=== PATIENT | male | born 1955 | race Caucasian/White ===

== ENCOUNTER 2018-03-01 06:38 | Day surgery (SDC) | payer MEDICARE, OTHER, SELFPAY ==
[2018-02-27 12:30] VITALS: BMI 27.8
[2018-03-01] VITALS (9 sets, daily range): BP systolic 120–142; BP diastolic 65–78; PULSE 64–79; RESP 11–17; TEMP 36.3–36.4; O2SAT 95–97; BMI 27.8
[2018-03-01] MEDS: LACTATED RINGERS 1,000 ML 42 ML IV ×2 (08:02→09:04)
--- NOTE | 2018-03-01 08:13 | PM.HP.1 ---
History of Present Illness Date Patient Seen: 03/01/18 Time Patient Seen: 08:13 Chief complaint: [id number] Narrative: The patient is a gentleman here for repair right inguinal hernia that is symptomatic. He is normally anticoagulated but has been bridged with Lovenox because he has a mechanical heart valve Patient History Medical History Enlarged prostate (Acute) Heart murmur (Acute ~2012) JOSELYN on CPAP (Acute) Pancreatitis due to biliary obstruction (Acute ~2012) Paroxysmal atrial fibrillation (Acute) Pre-diabetes (Acute) Urinary incontinence (Acute) Chronic anticoagulation (Chronic) Surgical History History of AAA (abdominal aortic aneurysm) repair (Acute) History of lumbar surgery (Acute ~1989) H/O prostate biopsy (Resolved ~12/2016) History of aortic valve replacement with metallic valve (Resolved 11/19/12) Hx laparoscopic cholecystectomy (Resolved ~06/2013) Family & Social History Family History: Reviewed 03/01/18 by Howie Jimenez MD Social History: household members spouse Tobacco & Substance use: Tobacco type cigarettes Smoking Status Former smoker alcohol intake current Substance Use Type does not use Meds Home Medications Medication Instructions Recorded Confirmed Type amlodipine 5 mg tablet 5 mg PO DAILY 12/13/17 03/01/18 History aspirin 81 mg tablet,delayed 81 mg PO DAILY 12/13/17 03/01/18 History release cholecalciferol (vitamin D3) 1,000 1,000 unit PO DAILY 12/13/17 02/27/18 History unit capsule docusate sodium 100 mg capsule 100 mg PO BID 12/13/17 03/01/18 History enoxaparin 120 mg/0.8 mL 120 mg SUBCUT Q12H #8 ml 12/13/17 Rx subcutaneous syringe iron 150 mg-vit C 60 mg-folate 1 0.5 tab PO DAILY 12/13/17 02/27/18 History [id number] tablet lisinopril 20 mg tablet 20 mg PO DAILY 12/13/17 03/01/18 History multivitamin tablet 1 tab PO DAILY 12/13/17 02/27/18 History tamsulosin 0.4 mg capsule 0.4 mg PO DAILY 09/19/18 09/19/18 History warfarin 5 mg tablet 7.5 mg PO QMWFSU 12/13/17 03/01/18 History warfarin 10 mg PO QTUTHSA 02/27/18 03/01/18 History Allergies Allergy/AdvReac Type Severity Reaction Status Date / Time No Known Drug Allergies Allergy Verified 02/27/18 12:34 Review of Systems Review of Systems No recent cardiac issues. No breathing problems. No black or bloody bowel movements. No seizures or blackouts. He does suffer from hypertension and BPH. Exam Vital Signs (past 8 hours): - 03/01/18 07:22 Temperature 97.4 F L Pulse Rate 64 Respiratory Rate 15 Blood Pressure 139/78 Pulse Oximetry 95 Oxygen Delivery Method Room Air Narrative Exam Narrative: Obese pleasant man in no apparent distress. His lungs are clear to auscultation no rales or rhonchi. Heart regular rate and rhythm he has a metallic click heard well throughout the precordium. His abdomen is protuberant soft nontender without masses. He has reducible right inguinal hernia. Assessment & Plan Plan: Assessment/Plan Narrative: Patient with a right inguinal hernia for repair. I talked to the patient about his risks which include cardiac, bleeding infection recurrence injury to nerves vas deferens blood supply to the testicle.
[2018-03-01] MEDS: CEFAZOLIN 2 GM/100 ML FROZ.PIGGY IV (08:16)
--- NOTE | 2018-03-01 08:16 | PM.PREOP ---
Pre-operative Note Interval Note Pre-op Check: Yes History & Physical exam performed today by Physician Changes: No
--- NOTE | 2018-03-01 08:38 | SUR.OPER ---
Supine on padded OR bed, head on pillow, arms secured on padded arm boards at <90 degrees abduction, legs uncrossed, safety belt at thigh, tape over blanket over lower legs.
[2018-03-01] MEDS: BUPIVACAINE 0.5% (PF) VIAL 30 ML INJ (08:49)
--- NOTE | 2018-03-01 10:00 | PM.OP.1 ---
Operative Date/Time/Diagnoses Date of procedure: 03/01/18 Time of procedure: 10:01 Post-op diagnosis: same (Indirect) Procedure & Clinicians Procedure: Repair with plug and patch technique Same procedure as scheduled: Yes Indications: Symptomatic hernia Surgeon: Howie Jimenez Click Yes if Unassisted: Yes Anesthesia Type: General Operative Notes Findings: Large lipoma of the cord adjacent to an indirect hernia sac Closure Type: primary Specimen(s): none sent Implants & Drains: Mesh Estimated Blood Loss (mL): 5 Procedure in detail: The patient was placed supine on the operating room table and underwent general LMA anesthesia. He was prepped and draped in the usual fashion. A transverse incision was made overlying the internal ring and carried down to the level of the external oblique. The external oblique was opened parallel with its fibers through the external ring. The cord structures were elevated. The cremaster was opened proximally and search made for an indirect sac. A large lipoma of the cord was encountered and from surrounding structures. It was clamped at the level of the deep epigastric vessels were was suture ligated with 2 0 silk. The distal portion was removed. An indirect sac was identified adjacent to this lipoma. It was from surrounding structures and opened. It had no contents. It was suture ligated with a 2 0 silk at the level the deep epigastric vessels. The distal portion was removed. A medium plug was placed in the defect created by the lipoma and the hernia sac. This was tacked into place with interrupted 0 Tycron sutures.. The floor was examined and was found to be weakened but adequate. A patch was placed across the floor and tacked at the pubic tubercle, the posterior lamella of the anterior rectus sheath, the ilioinguinal ligament, and superior lateral to the cord. The opening was modified as necessary to prevent tight constriction of the cord. Sutures of 0 Tycron were used to secure the mesh. The external oblique was closed with a running 3 0 Vicryl. The subcu was closed with interrupted 3 0 Vicryl. The skin was closed with a running 4 0 Vicryl subcuticular stitch and Steri-Strips. Dressing was applied, the patient was awakened, and the patient was taken to the recovery area in good condition. Complications: none Condition: stable Disposition: PACU Plan for aftercare: Will restart Coumadin tonight and Lovenox tomorrow morning
[2018-03-01] MEDS: OXYCODONE/ACETAMINOPHEN 5/325 TABLET 1 TAB PO (10:15)
== END 2018-03-01 11:00 | disposition home or self-care (01) ==
PROVIDERS: Family Provider Family Medicine; PCP Family Medicine; Visit Provider Specialist
PROC: (CPT 49505; principal; 2018-03-01 07:45)
DX: K40.90 Unilateral inguinal hernia, without obstruction or gangrene, not specified as recurrent (principal); D17.6 Benign lipomatous neoplasm of spermatic cord; G47.33 Obstructive sleep apnea (adult) (pediatric); Z79.01 Long term (current) use of anticoagulants
CPT/HCPCS: 49505; C1781; J0690; J1100; J1885; J2250; J2405; J2704; J3010

== ENCOUNTER 2021-07-30 08:22 | Inpatient (IN) | payer MEDICARE, OTHER, SELFPAY ==
[2021-07-30] VITALS (36 sets, daily range): BP systolic 84–147; BP diastolic 43–69; PULSE 62–113; RESP 16–42; TEMP 36.6–38.7; O2SAT 87–98; BMI 26.6; BMI 27.3
--- NOTE | 2021-07-30 08:54 | DI.RAD.S_ITS ---
PROCEDURE: XR CHEST 1V INDICATIONS: fever, chills TECHNIQUE: One view of the chest was acquired. COMPARISON: None. FINDINGS: Surgical changes and devices: Median sternotomy wires and prosthetic heart valve are seen. Lungs and pleura: There is mild pulmonary vascular congestion. No definite focal infiltrate. No pleural effusions or pneumothorax. Mediastinum: Tortuous thoracic aorta with aortic arch calcifications are noted. Heart size is enlarged. Bones and chest wall: No suspicious bony lesions. Overlying soft tissues appear unremarkable. IMPRESSION: Cardiomegaly and mild congestion. No focal infiltrate, pleural effusion or pneumothorax. Dictated by: Madan Escamilla M.D. on 07/30/2021 at 10:18 Approved by: Madan Escamilla M.D. on 07/30/2021 at 10:19
--- NOTE | 2021-07-30 08:57 | ED_ITS ---
HPI - Fever General Chief Complaint: Weakness Stated Complaint: low bp; shakes; slight fever Time Seen by Provider: 07/30/21 08:32 History of Present Illness HPI Narrative: 66-year-old male former smoker with recent evaluations for enlarged prostate presents with his in the chief complaint of fever as high as 105, shaking chills, generalized weakness and poor appetite for the better part of 1 week. He had been seen and evaluated by Urology in [facility] yesterday and had urine demonstrating blood but no sign of infection. He was supposed to have a cystoscopy but he was too ill and they sent him home. He denies runny nose, sore throat or cough. He has no chest pain or shortness of breath. He has been nauseated but denies any vomiting. He denies bad food, recent travel or antibiotic use. Related Data Home Medications Medication Instructions Recorded Confirmed amlodipine 5 mg tablet 5 mg PO DAILY 12/13/17 07/30/21 aspirin 81 mg tablet,delayed 81 mg PO DAILY 12/13/17 07/30/21 release cholecalciferol (vitamin D3) 25 1,000 unit PO DAILY 12/13/17 07/30/21 mcg (1,000 unit) capsule docusate sodium 100 mg capsule 100 mg PO BID 12/13/17 07/30/21 lisinopril 20 mg tablet 20 mg PO DAILY 12/13/17 07/30/21 multivitamin 1 tab PO DAILY 12/13/17 07/30/21 tamsulosin 0.4 mg capsule 0.4 mg PO DAILY 12/13/17 07/30/21 warfarin 5 mg tablet 10 mg PO DAILY 02/27/18 07/30/21 ferrous sulfate 27 mg iron tablet 13.5 mg PO DAILY 07/30/21 07/30/21 Allergies Allergy/AdvReac Type Severity Reaction Status Date / Time No Known Drug Allergies Allergy Verified 02/27/18 12:34 Review of Systems Review of Systems Narrative: GENERAL: See HPI HEENT: Denies sinus pain, ear pain, sore throat, difficulty swallowing, dizziness. RESPIRATORY: Denies dyspnea, cough, wheezing, hemoptysis, sputum. CARDIOVASCULAR: Denies chest pain, palpitations, orthopnea, edema, GASTROINTESTINAL: Denies nausea, vomiting, abdominal pain, diarrhea, constipation, melena. : Denies dysuria, frequency, incontinence, hematuria, urinary retention. MUSCULOSKELETAL: denies weakness, joint pain, or bony pain SKIN: Denies rash, skin lesions, or other NEUROLOGIC: Denies weakness, headache, numbness, change in speech, confusion, seizures, incoordination. PSYCHIATRIC: No concerning psychosocial issues. 12 point review of systems is negative except for those stated above Patient History Medical History (Updated 07/30/21 @ 11:29 by Benedict Hernandez DO) Chronic anticoagulation Enlarged prostate Heart murmur (~2012) JOSELYN on CPAP Pancreatitis due to biliary obstruction (~2012) Paroxysmal atrial fibrillation Pre-diabetes Urinary incontinence Surgical History H/O prostate biopsy (~12/2016) History of AAA (abdominal aortic aneurysm) repair History of aortic valve replacement with metallic valve (11/19/12) History of lumbar surgery (~1989) Hx laparoscopic cholecystectomy (~06/2013) Family History Mother Hypertension Sister Gallstones Diabetes mellitus Social History marital status: household members: spouse occupational status: previously employed Smoking Status: Former smoker alcohol intake: current substance use type: does not use Smoking Status: Former smoker Substance Use Type: does not use Exam Narrative Exam Narrative: GENERAL: [66] year old patient appears stated age. Well-developed patient, in mild distress. HEAD: Atraumatic. Normocephalic. EYES: Pupils equal round and reactive. Extraocular motions intact. No scleral i cterus. No injection or drainage. ENT: Dry mucous membranes Nose without bleeding, purulent drainage. Throat without erythema, tonsillar hypertrophy or exudate. Airway patent. NECK: Trachea midline. Non tender CARDIOVASCULAR: Regular rate and rhythm without murmurs, gallops, or rubs. RESPIRATORY: Clear to auscultation. Breath sounds equal bilaterally. No wheezes, rales, or rhonchi. GASTROINTESTINAL: Abdomen soft, non-tender, nondistended. EXTREMITIES: No edema or joint tenderness. BACK: Nontender without deformity or crepitance. No flank tenderness. NEURO: AOx3. SKIN: Poor skin turgor No rash or erythema of visible areas Initial Vital Signs Initial Vital Signs: Vital Signs Temperature 97.9 F 07/30/21 08:25 Pulse Rate 97 H 07/30/21 08:25 Respiratory Rate 18 07/30/21 08:25 Blood Pressure 111/52 L 07/30/21 08:25 Pulse Oximetry 93 07/30/21 08:25 Course Course Course Narrative: Fractional Excretion of Sodium (FENa) from [employer] on 07/30/2021 All calculations should be rechecked by clinician prior to use RESULT SUMMARY: 0.1 % FENa Pre-Renal e.g. Hypovolemia, heart failure, renal artery stenosis, sepsis (anything causing decreased effective renal perfusion). Remember, contrast-induced nephropathy will often look pre-renal. INPUTS: Serum sodium ?> 132 mEq/L Serum creatinine ?> 2.46 mg/dL Urine sodium ?> 23 mEq/L Urine creatinine ?> 358 mg/dL Orders Ordered: ED Orders 07/30/21 08:45 Complete Blood Count AUTO DIFF Stat Comprehensive Metabolic Panel Stat Lactate (Lactic Acid) Stat Pathologist Review (for CBC) Stat Procalcitonin Stat Troponin & CK Cardiac Panel Stat 07/30/21 08:50 Blood Culture Stat 07/30/21 08:54 XR chest 1V Stat 07/30/21 09:05 Covid-19 + FLU A/B by PCR Stat 07/30/21 09:14 US renal complete Stat 07/30/21 09:44 Creatinine Urine Random Stat Ictotest Urine Stat Sodium Urine Random Stat Urinalysis and Microscopic Stat Urine Culture Stat Levofloxacin (Levaquin) 750 mg in 150 mls @ 100 mls/hr IV NOW ONE Stop: 07/30/21 13:28 Last Admin: 07/30/21 12:02 Dose: 100 mls/hr Documented by: CSRICHARDLE Discontinued Medications Sodium Chloride (Normal Saline 0.9%) 1,000 mls @ 1,000 mls/hr IV BOLUS ONE Stop: 07/30/21 09:54 Last Admin: 07/30/21 09:22 Dose: Not Given Documented by: HALEIGH Sodium Chloride (Normal Saline 0.9%) 3,061.74 mls @ 1,020.58 mls/hr 30 ml/kg infuse over 3 hr (3061.74 ml) IV NOW ONE Stop: 07/30/21 12:13 Last Admin: 07/30/21 09:19 Dose: 1,020.58 mls/hr Documented by: HALEIGH Vital Signs Vital signs: Vital Signs - 8 hr 07/30/21 08:25 07/30/21 08:33 07/30/21 08:38 Temperature 97.9 F Pulse Rate 97 H 62 97 H Respiratory Rate 18 17 17 Blood Pressure 111/52 L 111/52 L Pulse Oximetry 93 97 93 07/30/21 09:00 07/30/21 09:01 07/30/21 09:30 Temperature Pulse Rate 93 H 89 111 H Respiratory Rate 18 20 Blood Pressure 98/54 L Pulse Oximetry 97 97 98 07/30/21 09:33 07/30/21 10:00 07/30/21 10:30 Temperature Pulse Rate 102 H 113 H 107 H Respiratory Rate 20 20 18 Blood Pressure 124/58 L 120/61 122/69 Pulse Oximetry 97 95 95 07/30/21 10:45 07/30/21 11:00 07/30/21 11:01 Temperature Pulse Rate 99 H 95 H 94 H Respiratory Rate 40 H 40 H 38 H Blood Pressure 84/43 L Pulse Oximetry 96 96 07/30/21 11:04 07/30/21 11:05 07/30/21 11:06 Temperature Pulse Rate 95 H 93 H 96 H Respiratory Rate 40 H 42 H 38 H Blood Pressure 109/49 L 94/44 L 89/50 L Pulse Oximetry 97 97 96 07/30/21 11:07 Temperature Pulse Rate 97 H Respiratory Rate 26 H Blood Pressure 89/46 L Pulse Oximetry 95 MDM - Fever Medical Records Medical records narrative: sepsis orders placed on arrival, error in submitting Levaquin. Verbal order unsuccessful, reattempts later in visit though it is out of window at the time successful Lab Data Result diagrams: 07/30/21 08:45 07/30/21 08:45 Labs: Lab Results 07/30/21 07/30/21 07/30/21 Range/Units 08:45 08:45 08:45 WBC 23.0 H (4.5-11.0) X10^3/uL RBC 4.34 L (4.5-5.9) X10^6/uL Hgb 12.2 L (13.5-17.5) g/dL Hct 35.8 L (41-53) % MCV 82.5 (80-100) fL MCH 28.2 (26-34) PG MCHC 34.2 (30-36) % RDW 14.1 (11.6-14.8) % Plt Count 273 (150-400) X10^3/uL Neut % (Auto) Not Reportable Lymph % (Auto) Not Reportable Stone % (Auto) Not Reportable Eos % (Auto) Not Reportable Baso % (Auto) Not Reportable Lymph # (Auto) Not Reportable Stone # (Auto) Not Reportable Baso # (Auto) Not Reportable Total Counted 100 Seg Neutrophils % 52.0 (38-70) % Band Neutrophils % 29.0 H (3-7) % Lymphocytes % (Manual) 4.0 L (25-45) % Atypical Lymphs % 3.0 H ( - 0) % Monocytes % (Manual) 3.0 (2-11) % Eosinophils % (Manual) 2.0 (2-4) % Metamyelocytes % 7.0 H (-0) % Neutrophils # (Manual) 79856 H (9504-6801) /uL RBC Morphology Normal morphology Sodium 132 L (137-145) mmol/L Potassium 4.8 (3.4-5.1) mmol/L Chloride 97 L (98-107) mmol/L Carbon Dioxide 23 (22-32) mmol/L BUN 48 H (9-20) mg/dL Creatinine 2.46 H (0.66-1.25) mg/dL Estimated GFR 28 L (>60) mL/min BUN/Creatinine Ratio 19.5 (6-22) Glucose 137 H (80-110) mg/dL Lactate 3.3 H (0.7-2.1) mmol/L Calcium 8.4 (8.4-10.2) mg/dL Total Bilirubin 1.0 (0.2-1.3) mg/dL AST 37 (17-59) IU/L ALT 26 (<50) IU/L Alkaline Phosphatase 81 (38-126) U/L Total Creatine Kinase 247 H (55-170) U/L CK-MB (CK-2) 3.48 H (<2.37) ng/mL CK-MB (CK-2) Rel Index 1.4 L (1.5-5.0) % Troponin I 0.211 H* (0.01-0.034) ng/mL Total Protein 7.4 (6.3-8.2) g/dL Albumin 4.0 (3.5-5.0) g/dL Globulin 3.4 (1.7-4.1) g/dL Albumin/Globulin Ratio 1.2 (1.0-2.8) Procalcitonin 507 H (<0.5) ng/mL Urine Color Urine Appearance Urine pH (4.5-8.0) Ur Specific [place] (1.000-1.035) Urine Protein (Negative) Urine Glucose (UA) (Negative) g/dL Urine Ketones (NEGATIVE) Urine Occult Blood (Negative) Urine Nitrate (Negative) Urine Bilirubin (NEGATIVE) Ur Bilirubin Confirm (Negative) Urine Urobilinogen (0.2) E.U./dL Ur Leukocyte Esterase (NEGATIVE) Urine RBC (0-5/HPF) Urine WBC (0-5/HPF) Ur Squamous Epith Cells (0-5/HPF) Ur Transition Epith Cell (0-5/HPF) Urine Bacteria (None) Hyaline Casts (None) Ur Culture Indicated? Ur Random Sodium (30-90) mmol/L Urine Creatinine mg/dL SARS-CoV-2 (PCR) (Negative) Influenza A (RT-PCR) (NEGATIVE) Influenza B (RT-PCR) (NEGATIVE) 07/30/21 07/30/21 07/30/21 Range/Units 09:05 09:44 09:44 WBC (4.5-11.0) X10^3/uL RBC (4.5-5.9) X10^6/uL Hgb (13.5-17.5) g/dL Hct (41-53) % MCV (80-100) fL MCH (26-34) PG MCHC (30-36) % RDW (11.6-14.8) % Plt Count (150-400) X10^3/uL Neut % (Auto) Lymph % (Auto) Stone % (Auto) Eos % (Auto) Baso % (Auto) Lymph # (Auto) Stone # (Auto) Baso # (Auto) Total Counted Seg Neutrophils % (38-70) % Band Neutrophils % (3-7) % Lymphocytes % (Manual) (25-45) % Atypical Lymphs % ( - 0) % Monocytes % (Manual) (2-11) % Eosinophils % (Manual) (2-4) % Metamyelocytes % (-0) % Neutrophils # (Manual) (1356-4587) /uL RBC Morphology Sodium (137-145) mmol/L Potassium (3.4-5.1) mmol/L Chloride (98-107) mmol/L Carbon Dioxide (22-32) mmol/L BUN (9-20) mg/dL Creatinine (0.66-1.25) mg/dL Estimated GFR (>60) mL/min BUN/Creatinine Ratio (6-22) Glucose (80-110) mg/dL Lactate (0.7-2.1) mmol/L Calcium (8.4-10.2) mg/dL Total Bilirubin (0.2-1.3) mg/dL AST (17-59) IU/L ALT (<50) IU/L Alkaline Phosphatase (38-126) U/L Total Creatine Kinase (55-170) U/L CK-MB (CK-2) (<2.37) ng/mL CK-MB (CK-2) Rel Index (1.5-5.0) % Troponin I (0.01-0.034) ng/mL Total Protein (6.3-8.2) g/dL Albumin (3.5-5.0) g/dL Globulin (1.7-4.1) g/dL Albumin/Globulin Ratio (1.0-2.8) Procalcitonin (<0.5) ng/mL Urine Color Yellow Urine Appearance Sl cloudy Urine pH 5.0 (4.5-8.0) Ur Specific [place] >=1.030 H (1.000-1.035) Urine Protein 2+ H (Negative) Urine Glucose (UA) Negative (Negative) g/dL Urine Ketones Negative (NEGATIVE) Urine Occult Blood 3+ H (Negative) Urine Nitrate Negative (Negative) Urine Bilirubin 1+ H (NEGATIVE) Ur Bilirubin Confirm Negative (Negative) Urine Urobilinogen 0.2 (0.2) E.U./dL Ur Leukocyte Esterase Trace H (NEGATIVE) Urine RBC 10-30/hpf H (0-5/HPF) Urine WBC 5-10/hpf H (0-5/HPF) Ur Squamous Epith Cells None seen (0-5/HPF) Ur Transition Epith Cell 1-5/hpf (0-5/HPF) Urine Bacteria Few (2-10) H (None) Hyaline Casts 0-1/lpf (None) Ur Culture Indicated? Specimen cultured Ur Random Sodium 23 L (30-90) mmol/L Urine Creatinine 358.4 mg/dL SARS-CoV-2 (PCR) Negative (Negative) Influenza A (RT-PCR) Flu a negative (NEGATIVE) Influenza B (RT-PCR) Flu b negative (NEGATIVE) MDM Narrative Medical decision making narrative: Patient presents with fever shaking chills and weakness. Septic protocol initiated soon after arrival, Levaquin shows an given suspicion of prostatitis given reported pain at the base of his penis. History and physical exam suggest dehydration and increased creatinine is consistent with this. Renal ultrasound demonstrates no obstructive uropathy or significant finding and FENA is 0.1% suggesting prerenal source. Patient has no chest pain, EKGs are nonischemic and initial elevated troponin thought most likely related to bump in renal functio n. Patient requires hospitalization for ongoing treatment and evaluation. Discharge Plan Departure Patient Disposition: Admitted As Inpatient Clinical Impression: Sepsis, Acute prostatitis, Acute kidney injury, Elevated troponin Admit Date/Time: 07/30/21 11:07 Admit Provider: Edward Mayorga
[2021-07-30 09:07] LABS: Add Manual Diff / Slide Review YES; Hematocrit 35.8 % (41-53); Hemoglobin 12.2 g/dL (13.5-17.5); Lactate (Lactic Acid) 3.3 mmol/L (0.7-2.1); Mean Corpuscular HGB Conc 34.2 % (30-36); Mean Corpuscular Hemoglobin 28.2 PG (26-34); Mean Corpuscular Volume 82.5 fL (80-100); Platelet Count 273 X10^3/uL (150-400); Red Blood Cell Count 4.34 X10^6/uL (4.5-5.9); Red Cell Distribution Width 14.1 % (11.6-14.8)
[2021-07-30 09:08] LABS: Alanine Aminotransferase 26 IU/L (<50); Albumin Globulin Ratio 1.2 (1.0-2.8); Alkaline Phosphatase 81 U/L (38-126); Aspartate Aminotransferase 37 IU/L (17-59); BUN Creatinine Ratio 19.5 (6-22); Blood Urea Nitrogen 48 mg/dL (9-20); Calcium 8.4 mg/dL (8.4-10.2); Carbon Dioxide 23 mmol/L (22-32); Chloride 97 mmol/L (98-107); Creatine Kinase 247 U/L (55-170); Estimated Glomerular Filt Rate 28 mL/min (>60); Globulin 3.4 g/dL (1.7-4.1); Glucose 137 mg/dL (80-110); HEMOLYSIS < 15 (0-50); Potassium 4.8 mmol/L (3.4-5.1); Sodium 132 mmol/L (137-145); Total Protein 7.4 g/dL (6.3-8.2)
--- NOTE | 2021-07-30 09:14 | DI.US.S_ITS ---
PROCEDURE: US RENAL COMPLETE INDICATIONS: ACUTE RENAL FAILURE TECHNIQUE: Real-time scanning was performed of the kidneys and bladder, with image documentation. COMPARISON: [facility], CR, XR CHEST 1V, 07/30/2021, 9:53. [facility], US, ABDOMEN COMPLETE, 07/04/2013, 17:23. FINDINGS: Kidneys: Kidneys are normal in size. Right kidney measures 12.1 cm long; left kidney measures 13.5 cm long. Right renal cortical thickness is 2.1 cm; left renal cortical thickness is 2.2 cm. Renal cortical echotexture is normal. No hydronephrosis or nephrolithiasis. Along the medial anterior aspect of the right kidney, there is a hyperechoic focus involving the cortex that measures up to 17 mm. No shadowing can be seen. No abnormal vascularity. Bladder: Pre-void bladder volume is 30 mL. Post-void residual is 11 mL. Pre-void images demonstrate no intraluminal masses or stones. On pre-void images, only the left ureteral jets are noted with color Doppler interrogation. (Of note, ureteral jets may not be detectable in up to 25% of cases due to insufficient differences in specific gravity between ureteral and bladder urine). Miscellaneous: No free pelvic fluid. The prostate is enlarged and heterogeneous measuring 5.4 x 8.8 x 7 cm. Splenomegaly is incidentally noted, 15 cm. IMPRESSION: Negative for hydronephrosis. A cause of acute renal failure is not seen. Enlarged prostate, measuring up to 8.8 cm. Mild postvoid residual, 11 cc. Likely benign fatty focus along the medial anterior cortex of the right kidney. Dictated by: Darren Ashby M.D. on 07/30/2021 at 9:59 Approved by: Darren Ashby M.D. on 07/30/2021 at 10:02
[2021-07-30] MEDS: SODIUM CHLORIDE 0.9% 1020.58 ML IV (09:19)
[2021-07-30 09:35] LABS: CKMB % Relative Index 1.4 % (1.5-5.0); Creatine Kinase MB 3.48 ng/mL (<2.37)
[2021-07-30 09:37] LABS: Neutrophils Absolute Manual 18630 /uL (3000-5900); RBC Morphology Normal Morphology; Total Cells Counted 100
[2021-07-30 09:47] LABS: Troponin I 0.211 ng/mL (0.01-0.034)
[2021-07-30 09:48] LABS: Influenza A - CEPHEID Flu A NEGATIVE (NEGATIVE); Influenza B - CEPHEID Flu B NEGATIVE (NEGATIVE)
[2021-07-30 09:49] LABS: Procalcitonin 507 ng/mL (<0.5)
[2021-07-30 09:52] LABS: Bilirubin Urine UA 1+ (NEGATIVE); Color Urine UA YELLOW; Glucose Urine UA NEGATIVE (Negative); Ketones Urine UA NEGATIVE (NEGATIVE); Leukocyte Esterase Urine UA TRACE (NEGATIVE); Nitrite Urine UA NEGATIVE (Negative); Occult Blood Urine UA 3+ (Negative); Protein Urine UA 2+ (Negative); Specific Gravity Urine UA >=1.030 (1.000-1.035); Urobilinogen Urine UA 0.2 E.U./dL (0.2)
[2021-07-30 09:52] LABS: COVID-19 CEPHEID PCR (VTM/NP) Negative (Negative)
[2021-07-30 10:00] LABS: Appearance Urine UA SL CLOUDY
[2021-07-30 10:13] LABS: Ictotest Urine Negative (Negative); RBC Urine 10-30/HPF (0-5/HPF)
[2021-07-30 10:14] LABS: Squamous Epithelial Cell Urine None Seen (0-5/HPF); Transitional Epi Cells Urine 1-5/HPF (0-5/HPF); WBC Urine 5-10/HPF (0-5/HPF)
[2021-07-30 10:15] LABS: Bacteria Urine Few (2-10); Culture Indicated Urine Specimen Cultured; Hyaline Casts Urine 0-1/LPF; Sodium Urine Random 23 mmol/L (30-90)
[2021-07-30 10:34] LABS: Creatinine Urine Random 358.4 mg/dL
[2021-07-30 10:58] LABS: Reflexed Lactate in 2 Hours Y
[2021-07-30] MEDS: levoFLOXacin 750 MG/150 ML PIGGYBACK 100 MG IV (12:02)
--- NOTE | 2021-07-30 12:09 | PC.NURSE ---
Pt c/o being hot. increasingly more tachypneic. temp 99.4. Dr Hernandez advised no ABX have yet been given. Levaquin ordered. infusing at this time. Fluids infusing and pt drinking ice water ok'd by Dr Hernandez. AAOx3 at this time and voiding adequately himself. at bedside. VS Q15. NAD
[2021-07-30 13:20] LABS: Lactate 2HR (Lactic Acid Rflx) 2.4 mmol/L (0.7-2.1)
[2021-07-30 14:46] LABS: Prothrombin Time 70.8 SECONDS (10.1-12.7)
[2021-07-30 14:49] LABS: INR 5.9 (0.9-1.3)
--- NOTE | 2021-07-30 16:17 | PM.HP.1 ---
History of Present Illness History of Present Illness Date Patient Seen: 07/30/21 Time Patient Seen: 16:00 Date of Onset of Symptoms: 07/23/21 Chief complaint: low bp; shakes; slight fever Narrative: 66-year-old male former smoker with history of mechanical heart valve, on warfarin, paroxysmal atrial fibrillation, abdominal aortic aneurysm repair, urinary retention present with his for chief complaint of fever as high as 105, shaking chills, generalized weakness and poor appetite for the better part of 1 week.?He was scheduled to have a cystoscopy yesterday in [place] which was canceled due to patient not feeling well. Apparently urine then did not show signs of infection. Patient has history of urinary retention and had a short-term catheter back in April of this year. He has noticed blood in the urine. He denies respiratory symptoms such as cough or shortness of breath, denies abdominal pain, nausea or vomiting or blood per rectum. ER evaluation notable for fever, hypotension with BP 89 systolic, tachycardia with heart rate 113 in ill appearing patient. [place]BC was 32293 and he was in acute renal failure with BUN 48 and creatinine 2.46. He does not have history of renal failure. His lactate was also elevated at 3.3. His troponin was elevated at 0.211. EKG showed atrial fibrillation without acute ST or T-wave abnormality. Chest x-ray without infiltrate. Patient History Medical History (Updated 07/30/21 @ 11:29 by Benedict Hernandez DO) Chronic anticoagulation Enlarged prostate Heart murmur (~2012) JOSELYN on CPAP Pancreatitis due to biliary obstruction (~2012) Paroxysmal atrial fibrillation Pre-diabetes Urinary incontinence Surgical History H/O prostate biopsy (~12/2016) History of AAA (abdominal aortic aneurysm) repair History of aortic valve replacement with metallic valve (11/19/12) History of lumbar surgery (~1989) Hx laparoscopic cholecystectomy (~06/2013) Family & Social History Family History Mother Hypertension Sister Gallstones Diabetes mellitus Social History: household members spouse Prior Living Arrangements House Safety & Behavioral: Feels Safe in Current Yes Environment Been Physically Hurt or No Threatened By a Person Tobacco & Substance use: Tobacco type cigarettes Smoking Status Former smoker alcohol intake current alcohol intake frequency 0-2 drinks per day Substance Use Type does not use Meds Home Medications and Allergies Home Medications Medication Instructions Recorded Confirmed Type amlodipine 5 mg tablet 5 mg PO DAILY 12/13/17 07/30/21 History aspirin 81 mg tablet,delayed 81 mg PO DAILY 12/13/17 07/30/21 History release cholecalciferol (vitamin D3) 25 1,000 unit PO DAILY 12/13/17 07/30/21 History mcg (1,000 unit) capsule docusate sodium 100 mg capsule 100 mg PO BID 12/13/17 07/30/21 History lisinopril 20 mg tablet 20 mg PO DAILY 12/13/17 07/30/21 History multivitamin 1 tab PO DAILY 12/13/17 07/30/21 History tamsulosin 0.4 mg capsule 0.4 mg PO DAILY 12/13/17 07/30/21 History warfarin 5 mg tablet 10 mg PO DAILY 02/27/18 07/30/21 History ferrous sulfate 27 mg iron tablet 13.5 mg PO DAILY 07/30/21 07/30/21 History metformin 500 mg tablet,extended 500 mg PO DAILY 07/30/21 07/30/21 History release 24 hr Allergies Allergy/AdvReac Type Severity Reaction Status Date / Time No Known Drug Allergies Allergy Verified 02/27/18 12:34 Review of Systems Review of Systems Narrative: Ten point ROS otherwise negative Exam Vital Signs (past 8 hours): - 07/30/21 08:25 07/30/21 08:33 07/30/21 08:38 Temperature 97.9 F Pulse Rate 97 H 62 97 H Respiratory Rate 18 17 17 Blood Pressure 111/52 L 111/52 L Pulse Oximetry 93 97 93 07/30/21 09:00 07/30/21 09:01 07/30/21 09:30 Temperature Pulse Rate 93 H 89 111 H Respiratory Rate 18 20 Blood Pressure 98/54 L Pulse Oximetry 97 97 98 07/30/21 09:33 07/30/21 10:00 07/30/21 10:30 Temperature Pulse Rate 102 H 113 H 107 H Respiratory Rate 20 20 18 Blood Pressure 124/58 L 120/61 122/69 Pulse Oximetry 97 95 95 07/30/21 10:45 07/30/21 11:00 07/30/21 11:01 Temperature Pulse Rate 99 H 95 H 94 H Respiratory Rate 40 H 40 H 38 H Blood Pressure 84/43 L Pulse Oximetry 96 96 07/30/21 11:04 07/30/21 11:05 07/30/21 11:06 Temperature Pulse Rate 95 H 93 H 96 H Respiratory Rate 40 H 42 H 38 H Blood Pressure 109/49 L 94/44 L 89/50 L Pulse Oximetry 97 97 96 07/30/21 11:07 07/30/21 11:08 07/30/21 11:16 Temperature Pulse Rate 97 H 99 H 95 H Respiratory Rate 26 H 28 H 39 H Blood Pressure 89/46 L 89/45 L 99/55 L Pulse Oximetry 95 95 07/30/21 11:30 07/30/21 11:45 07/30/21 12:00 Temperature Pulse Rate 95 H 96 H 95 H Respiratory Rate 39 H 39 H 29 H Blood Pressure 100/54 L 107/55 L 98/50 L Pulse Oximetry 96 07/30/21 12:16 07/30/21 12:30 07/30/21 12:31 Temperature Pulse Rate 108 H 98 H 97 H Respiratory Rate 41 H 34 H 34 H Blood Pressure 147/68 H 109/51 L Pulse Oximetry 94 94 94 07/30/21 12:45 07/30/21 13:00 07/30/21 13:29 Temperature 101.1 F H Pulse Rate 89 89 Respiratory Rate 34 H 38 H Blood Pressure 98/50 L 96/50 L Pulse Oximetry 98 97 Oxygen Delivery Method Room Air Narrative Exam Narrative: General: Ill-appearing male with active rigors HEENT: Nontraumatic, anicteric, pupils equal, dry oral mucosa Neck: No lymphadenopathy Lungs: Clear to auscultation Heart: Irregularly irregular, tachycardic Abdomen: Soft, nontender, no HSM Extremities: No edema Objective Labs Result Diagrams: 07/30/21 08:45 07/30/21 08:45 Labs: Laboratory Results - last 24 hr 07/30/21 07/30/21 07/30/21 08:45 08:45 08:45 WBC 23.0 H RBC 4.34 L Hgb 12.2 L Hct 35.8 L MCV 82.5 MCH 28.2 MCHC 34.2 RDW 14.1 Plt Count 273 Neut % (Auto) Not Reportable Lymph % (Auto) Not Reportable [place] % (Auto) Not Reportable Eos % (Auto) Not Reportable Baso % (Auto) Not Reportable Lymph # (Auto) Not Reportable [place] # (Auto) Not Reportable Baso # (Auto) Not Reportable Total Counted 100 Seg Neutrophils % 52.0 Band Neutrophils % 29.0 H Lymphocytes % (Manual) 4.0 L Atypical Lymphs % 3.0 H Monocytes % (Manual) 3.0 Eosinophils % (Manual) 2.0 Metamyelocytes % 7.0 H Neutrophils # (Manual) 69283 H RBC Morphology Normal morphology PT INR Sodium 132 L Potassium 4.8 Chloride 97 L Carbon Dioxide 23 BUN 48 H Creatinine 2.46 H Estimated GFR 28 L BUN/Creatinine Ratio 19.5 Glucose 137 H Lactate 3.3 H Calcium 8.4 Total Bilirubin 1.0 AST 37 ALT 26 Alkaline Phosphatase 81 Total Creatine Kinase 247 H CK-MB (CK-2) 3.48 H CK-MB (CK-2) Rel Index 1.4 L Troponin I 0.211 H* Total Protein 7.4 Albumin 4.0 Globulin 3.4 Albumin/Globulin Ratio 1.2 Procalcitonin 507 H Urine Color Urine Appearance Urine pH Ur Specific [place] Urine Protein Urine Glucose (UA) Urine Ketones Urine Occult Blood Urine Nitrate Urine Bilirubin Ur Bilirubin Confirm Urine Urobilinogen Ur Leukocyte Esterase Urine RBC Urine WBC Ur Squamous Epith Cells Ur Transition Epith Cell Urine Bacteria Hyaline Casts Ur Culture Indicated? Ur Random Sodium Urine Creatinine SARS-CoV-2 (PCR) Influenza A (RT-PCR) Influenza B (RT-PCR) 07/30/21 07/30/21 07/30/21 09:05 09:44 09:44 WBC RBC Hgb Hct MCV MCH MCHC RDW Plt Count Neut % (Auto) Lymph % (Auto) [place] % (Auto) Eos % (Auto) Baso % (Auto) Lymph # (Auto) [place] # (Auto) Baso # (Auto) Total Counted Seg Neutrophils % Band Neutrophils % Lymphocytes % (Manual) Atypical Lymphs % Monocytes % (Manual) Eosinophils % (Manual) Metamyelocytes % Neutrophils # (Manual) RBC Morphology PT INR Sodium Potassium Chloride Carbon Dioxide BUN Creatinine Estimated GFR BUN/Creatinine Ratio Glucose Lactate Calcium Total Bilirubin AST ALT Alkaline Phosphatase Total Creatine Kinase CK-MB (CK-2) CK-MB (CK-2) Rel Index Troponin I Total Protein Albumin Globulin Albumin/Globulin Ratio Procalcitonin Urine Color Yellow Urine Appearance Sl cloudy Urine pH 5.0 Ur Specific [place] >=1.030 H Urine Protein 2+ H Urine Glucose (UA) Negative Urine Ketones Negative Urine Occult Blood 3+ H Urine Nitrate Negative Urine Bilirubin 1+ H Ur Bilirubin Confirm Negative Urine Urobilinogen 0.2 Ur Leukocyte Esterase Trace H Urine RBC 10-30/hpf H Urine WBC 5-10/hpf H Ur Squamous Epith Cells None seen Ur Transition Epith Cell 1-5/hpf Urine Bacteria Few (2-10) H Hyaline Casts 0-1/lpf Ur Culture Indicated? Specimen cultured Ur Random Sodium 23 L Urine Creatinine 358.4 SARS-CoV-2 (PCR) Negative Influenza A (RT-PCR) Flu a negative Influenza B (RT-PCR) Flu b negative 07/30/21 07/30/21 12:50 14:20 WBC RBC Hgb Hct MCV MCH MCHC RDW Plt Count Neut % (Auto) Lymph % (Auto) [place] % (Auto) Eos % (Auto) Baso % (Auto) Lymph # (Auto) [place] # (Auto) Baso # (Auto) Total Counted Seg Neutrophils % Band Neutrophils % Lymphocytes % (Manual) Atypical Lymphs % Monocytes % (Manual) Eosinophils % (Manual) Metamyelocytes % Neutrophils # (Manual) RBC Morphology PT 70.8 H INR 5.9 H* Sodium Potassium Chloride Carbon Dioxide BUN Creatinine Estimated GFR BUN/Creatinine Ratio Glucose Lactate 2.4 H Calcium Total Bilirubin AST ALT Alkaline Phosphatase Total Creatine Kinase CK-MB (CK-2) CK-MB (CK-2) Rel Index Troponin I Total Protein Albumin Globulin Albumin/Globulin Ratio Procalcitonin Urine Color Urine Appearance Urine pH Ur Specific [place] Urine Protein Urine Glucose (UA) Urine Ketones Urine Occult Blood Urine Nitrate Urine Bilirubin Ur Bilirubin Confirm Urine Urobilinogen Ur Leukocyte Esterase Urine RBC Urine WBC Ur Squamous Epith Cells Ur Transition Epith Cell Urine Bacteria Hyaline Casts Ur Culture Indicated? Ur Random Sodium Urine Creatinine SARS-CoV-2 (PCR) Influenza A (RT-PCR) Influenza B (RT-PCR) Assessment & Plan Assessment & Plan narrative: 1. Sepsis with acute organ dysfunction -presents with fever, hypotension and tachycardia, elevated lactate and FREDDY -likely source is acute prostatitis in patient with history of BPH and urinary retention and blood in urine and no other obvious source of infection -blood in urine culture pending -received 30 male per kg IV volume resuscitation in ED -continue Levaquin 750 mg IV Q 48 hours started in the ED -added cefepime 1 g IV q.12 hours for double coverage, narrow antibiotics once culture results available -NS 125 cc/hour 2. Acute kidney injury -secondary to sepsis -treat underlying etiology 3. Troponin leak -secondary to renal injury and sepsis -patient without chest discomfort or EKG changes -trend troponin -telemetry 4. Mechanical heart valve, atrial fibrillation, on warfarin -INR 5.9, home dose of warfarin is 10 mg q.d. except 5 mg on -hold warfarin and recheck INR in a.m. -continue ASA 81 mg q.d. 5. Type 2 diabetes -hold metformin secondary to FREDDY -low-dose sliding scale 6. Hypertension -hold antihypertensive secondary to sepsis Code status: Full code DVT prophylaxis: On warfarin Time Spent With Patient Critical Care time: I spent a total of [] minutes of critical care time on this patient's care today; this time is exclusive of procedural time. Quality VTE Deep Vein Thrombosis/Pulmonary Embolism Present on Admission: No
[2021-07-30] MEDS: SODIUM CHLORIDE 0.9% 1,000 ML 125 ML IV ×2 (16:32→23:05)
[2021-07-30] MEDS: ACETAMINOPHEN 325 MG TABLET 650 MG PO ×2 (16:32→23:08)
[2021-07-30] MEDS: CEFEPIME 1 GM in SODIUM CHLORIDE 0.9% 100 ML 200 ML IV (18:07)
--- NOTE | 2021-07-30 18:23 | PC.NURSE ---
Pt arrived to the unit around 2pm. Pt is AxOx3-4 little forgetful and needs 1person assistance. VSS unstable:T-102.7F, HR-105, RR-26, and BP-99/47, SPO2-92% on RA but shallow breathing. Pt was shaky, chills and very weak but denied pain. Pt has uses urinal with assist of 1 person and voided once 300ml. But then, he has frequent urgency but did not void. PVR was done -5ml. Pt's T got better after PO 650ml Tyl so now T-98.0F. PO intake is good and pt is very cooperative. Pt's is in the room. No other changes. Continue monitor.
[2021-07-30] MEDS: DOCUSATE 100 MG CAPSULE PO (20:07)
[2021-07-30 20:18] LABS: Troponin I 0.229 ng/mL (0.01-0.034)
[2021-07-30 22:39] LABS: Acinetobacter baumannii Not Detected (Not Detect); Candida albicans Not Detected (Not Detect); Candida glabrata Not Detected (Not Detect); Candida krusei Not Detected (Not Detect); Candida parapsilosis Not Detected (Not Detect); Candida tropicalis Not Detected (Not Detect); E. coli Detected (Not Detect); Enterobacter cloacae complex Not Detected (Not Detect); Enterobacteriaceae species Detected (Not Detect); Enterococcus species Not Detected (Not Detect); Haemophilus influenzae Not Detected (Not Detect); KPC (carbapenem-resist gene) Not Detected (Not Detect); Listeria monocytogenes Not Detected (Not Detect); Neisseria meningitidis Not Detected (Not Detect); Proteus species Not Detected (Not Detect); Pseudomonas aeruginosa Not Detected (Not Detect); Serratia marcescens Not Detected (Not Detect); Staphylococcus species Not Detected (Not Detect); Streptococcus agalactiae (Gr B Not Detected (Not Detect); Streptococcus pneumonia Not Detected (Not Detect); Streptococcus pyogenes (Gr A) Not Detected (Not Detect); Streptococcus species Not Detected (Not Detect)
[2021-07-30 23:50] LABS: Troponin I 0.213 ng/mL (0.01-0.034)
[2021-07-31] VITALS (40 sets, daily range): BP systolic 82–203; BP diastolic 48–125; PULSE 75–170; RESP 18–58; TEMP 36.6–37.9; O2SAT 83–97
[2021-07-31] MEDS: CEFEPIME 1 GM in SODIUM CHLORIDE 0.9% 100 ML 200 ML IV ×2 (05:11→17:30)
[2021-07-31 05:52] LABS: Add Manual Diff / Slide Review NO; Basophils Absolute Auto 0 /uL (0-100); Basophils Percent Auto 0.3 % (0-2); Eosinophils Absolute Auto 100 /uL (0-450); Eosinophils Percent Auto 0.4 % (2-4); Hematocrit 32.3 % (41-53); Hemoglobin 11.2 g/dL (13.5-17.5); Lymphocytes Absolute Auto 500 /uL (1100-4500); Lymphocytes Percent Auto 3.4 % (25-40); Mean Corpuscular HGB Conc 34.7 % (30-36); Mean Corpuscular Hemoglobin 28.5 PG (26-34); Mean Corpuscular Volume 82.2 fL (80-100); Monocytes Absolute Auto 900 /uL (0-900); Monocytes Percent Auto 5.8 % (3-14); Neutrophils Absolute Auto 13600 /uL (1500-7000); Neutrophils Percent Auto 90.1 % (50-75); Platelet Count 169 X10^3/uL (150-400); Red Blood Cell Count 3.92 X10^6/uL (4.5-5.9); Red Cell Distribution Width 14.4 % (11.6-14.8); White Blood Cell Count 15.1 X10^3/uL (4.5-11.0)
[2021-07-31 05:58] LABS: Prothrombin Time 63.2 SECONDS (10.1-12.7)
[2021-07-31 06:05] LABS: INR 5.3 (0.9-1.3)
[2021-07-31 06:09] LABS: BUN Creatinine Ratio 30.6 (6-22); Blood Urea Nitrogen 37 mg/dL (9-20); Calcium 7.5 mg/dL (8.4-10.2); Carbon Dioxide 21 mmol/L (22-32); Chloride 105 mmol/L (98-107); Estimated Glomerular Filt Rate > 60 mL/min (>60); Glucose 131 mg/dL (80-110); HEMOLYSIS < 15 (0-50); Potassium 4.1 mmol/L (3.4-5.1); Sodium 134 mmol/L (137-145)
[2021-07-31] MEDS: ACETAMINOPHEN 325 MG TABLET 650 MG PO ×2 (06:38→12:06)
[2021-07-31] MEDS: ASPIRIN EC 81 MG TABLET PO (08:02)
[2021-07-31] MEDS: DOCUSATE 100 MG CAPSULE PO ×2 (08:02→20:45)
[2021-07-31] MEDS: TAMSULOSIN 0.4 MG CAPSULE PO (08:03)
[2021-07-31] MEDS: FUROSEMIDE 20 MG/2 ML VIAL IV (10:43)
--- NOTE | 2021-07-31 10:57 | CM.DANOTE ---
DCP: Case received, EMR reviewed and met with patient. Spouse, Kendra, was also at bedside. Introduced self and role. Was able to obtain information regarding patient's baseline activity status at home prior to hospitalization. DCP assessment completed with information currently available. Patient is a 66 year old male who admitted yesterday morning to the care of the hospitalist team. PCP: Dr. Mancilla. Payer: confirmed: Medicare/[facility]. Patient came to the hospital via private vehicle secondary to having a fever, weakness and poor appetite for close to a weeks's time. According to notes, patient had been seen yesterday with his urologist in [place], and was supposed to have a cystoscopy, but was too ill, and he was sent home. He then came to the hospital due to fever. He was diagnosed with acute prostatitis and sepsis. Met with patient in his room. He is alert and oriented, laying in bed. His spouse was also at bedside. Patient and spouse reside in [place], and his urologist is in [place]. At patient's baseline, he is independent. He and his spouse walk between 2-3 miles a day. Spouse was asking about inpatient versus outpatient with Medicare. Explained that all patients in the hospital are reviewed by UR nurse to determine if patient qualifies for inpatient. Spouse was asking about the 3 midnight rule. Let her know that for Medicare patients, if they need skilled rehab, the requirement is for them to be in the hospital for 3 midnights if they make inpatient status. P: DCP to continue to follow for any needs. Patient should be able to go home when he is deemed medically stable. Magdalena Best RN/Outboard Motor Tester Discharge Planning/Care Management CM Discharge Assessment Start: 07/31/21 10:56 Freq: Status: Active Protocol: Document 07/31/21 10:56 (Rec: 07/31/21 10:57 [id number]) Discharge Planning Assessment Assigned Mountain Bike Guide Magdalena Best RN/Outboard Motor Tester Advance Directives? Yes Advance Directives on File No History Provided By Patient,Family Member,Medical Record Prior Living Arrangements House Household Members spouse Type of transporation used prior to Drives own vehicle admit Independent with ADL's Yes Is patient alert and oriented? Yes Caregiver for Another No Barriers to Discharge No Discharge Plan Home Transportation Arrangement Spouse Referrals Initiated None needed Whiteboard Updated in Patient Room with Yes name and ext. # of Mountain Bike Guide Review Status In Process Next Review Type Continued Stay Review
[2021-07-31] MEDS: levoFLOXacin 750 MG/150 ML PIGGYBACK 100 MG IV (11:13)
--- NOTE | 2021-07-31 12:31 | DI.ECHO.S_ITS ---
[facility] +---------+ [facility] +---------+ : : [address] [place] : : : : [id number] : : : : Phone: [phone]+ Echocardiogram Report + + :Name: DARRIUS HANCOCK Study Date: 08/01/2021 Height: 77 in : :[facility] ReadingLocation: Weight: 230 lb: : Gender: Male BSA: 2.4 m2 : :: 1955 Age: 66 yrs BP: 98/49 mmHg: :Reason For Study: Elevated Troponin : :Ordering Physician: LG, : :MANJIT Performed By: Sascha Ann : :Referring: MANJIT CASTANON : + + Interpretation Summary There is moderate concentric left ventricular hypertrophy. The ejection fraction is estimated to be 40-45%. Diastolic function could not be accurately assessed due to atrial fibrillation. The right ventricle is moderately dilated. Right ventricular systolic function is moderate to severely reduced. The right atrium is moderately dilated. The prosthetic aortic valve is well-seated. There is mild aortic regurgitation. Unable to estimate PASP. Procedure: A two-dimensional transthoracic echocardiogram with color flow and Doppler was performed. The study quality was technically adequate. There is no prior echocardiogram noted for this patient. Left Ventricle: The left ventricle is normal in size. There is moderate concentric left ventricular hypertrophy. The ejection fraction is estimated to be 40-45%. There is mild to moderate global hypokinesis of the left ventricle. Diastolic function could not be accurately assessed due to atrial fibrillation. Right Ventricle: The right ventricle is moderately dilated. Right ventricular systolic function is moderate to severely reduced. Atria: The left atrium is mildly dilated. The right atrium is moderately dilated. The interatrial septum grossly appears intact with no obvious evidence for an atrial septal defect. Mitral Valve: The mitral valve is normal in structure and function. There is trace mitral regurgitation. Aortic Valve: There is a mechanical aortic valve. The prosthetic aortic valve is well-seated. There is probable normal prosthetic aortic valve function. The aortic valve mean gradient is 7 mmHg. There is mild aortic regurgitation. Tricuspid Valve: The tricuspid valve is normal in structure and function. There is a trace or physiologic amount of tricuspid regurgitation. Pulmonary artery pressures cannot be estimated because of the lack of a measurable TR jet velocity. Pulmonic Valve: The pulmonic valve is normal in structure and function. There is a trace or physiologic amount of pulmonic regurgitation. Great Vessels: The aortic root is not well visualized. The dimensions of the ascending aorta are normal. The IVC is of normal diameter and collapses greater than 50% with a sniff. This suggests a low right atrial pressure of 3 mm Hg. Pericardium/ Pleura There is no pericardial effusion. There is no pleural effusion. MMode/2D Measurements & Calculations LVIDd: 5.2 cm asc Aorta Diam: 3.1 cm LVIDs: 3.3 cm FS: 36.7 % IVSd: 1.6 cm LVPWd: 1.4 cm LV faust. diameter/BSA (cm/m^2): 2.2 LV sys. diameter/BSA (cm/m^2): 1.4 LA A2 area: 29.4 cm2 RA long axis: 7.0 cm LA A4 area: 26.0 cm2 RA area: 30.1 cm2 LA length (vol): 7.1 cm RA vol: 109.4 ml LA vol: 91.6 ml RA : 46.1 ml/m2 LA vol index: 38.6 ml/m2 TAPSE: 1.2 cm Doppler Measurements & Calculations Ao V2 max: 166.0 cm/sec LVOT Max Dawson: 78.5 cm/sec Ao V2 mean: 123.9 cm/sec LV V1 max P.5 mmHg Ao max P.0 mmHg LV V1 VTI: 12.6 cm Ao mean P.8 mmHg sev ratio: 0.50 Ao V2 VTI: 25.2 cm Reading Physician:02:49 PM
--- NOTE | 2021-07-31 12:36 | DI.RAD.S_ITS ---
PROCEDURE: XR CHEST 1V INDICATIONS: resp distress TECHNIQUE: One view of the chest was acquired. COMPARISON: [facility], CR, XR CHEST 1V, 07/30/2021, 9:53. FINDINGS: Surgical changes and devices: Sternotomy. Lungs and pleura: Bilateral airspace opacities compatible with pulmonary edema. No pleural effusions or pneumothorax. Mediastinum: Mediastinal contours appear normal. Heart size is mildly increased. Bones and chest wall: No suspicious bony lesions. Overlying soft tissues appear unremarkable. IMPRESSION: 1. Bilateral airspace opacities compatible with pulmonary edema. Superimposed pneumonia cannot be excluded. Recommend clinical correlation. Dictated by: Krissy Perera M.D. on 07/31/2021 at 12:07 Approved by: Krissy Perera M.D. on 07/31/2021 at 12:08
[2021-07-31] MEDS: FUROSEMIDE 100 MG/10 ML VIAL 80 MG IV ×2 (12:58→22:05)
[2021-07-31] MEDS: MORPHINE 4 MG/ML INJ 5 MG IV (12:58)
[2021-07-31 13:05] LABS: pH ABG 7.53 (7.35-7.45)
[2021-07-31 13:06] LABS: HCO3 ABG 18 mmol/L (22-26); Oxygen Saturation ABG 92 % (95-100); PO2 ABG 53 mmHg (80-100); TCO2 ABG 19 mmol/L (21-31)
--- NOTE | 2021-07-31 13:29 | PC.NURSE ---
Addendum entered by Jessica Urena R.N. 07/31/21 16:46: 1645: Pt states I feel so much better. RR=20s, O2 sat= 95% on HHFNC at 50%/50L. BP currently 98/55 MAP=70. PT resting in bed and offers no complaints at present time. Addendum entered by Jessica Urena R.N. 07/31/21 15:36: 1520: Pt with lower BPs (97/56 MAP=67, 89/53 MAP=60. Call placed to teleintensivist Dr Stone. Will monitor for 1 hour and update accordingly. Original Note: 1300: Pt admitted to ICU from room 211 for increased SOB. STAT morphine and lasix administered per orders. Pt placed on 15 L NC, O2 sats=85-88%. Pt markedly dyspneic/diaphoretic, RR=40s-50s. Fine crackles auscultated in bilat lung bases. 1330: Pt WOB improved, RR=30s. 1 L urine output noted since administration of lasix. Will continue to monitor. Pt placed on 50L HHFNC by RT per teleintensivist order.
--- NOTE | 2021-07-31 13:32 | P.TELICUCN_ITS ---
History of Present Illness Consult details Chief complaint: low bp; shakes; slight fever Narrative: 66-year-old male former smoker with history of mechanical AVR, on warfarin, paroxysmal atrial fibrillation, abdominal aortic aneurysm repair, urinary retention presented with fever, chills, generalized weakness and poor appetite for the better part of 1 week.?He was found to be hypotensive, sever sepsis with FREDDY, patient received fluid boluses 30 ml/kg, developed hypoxia and respiratory failure, found to have urinary retention s/p Lynn Cath placement ? Acute Hypoxemic resp failure 2/2 pul edema Sever sepsis 2/2 E coli UTI , prostatitis and bacteremia A fib w RVR Hypertensive urgency Acute urinary retention Type II MT Elevated INR 2/2 sepsis and Coumadin H/o of Mechanical AVR ? Rec: Switch NC to HFNC with 60 L& 60%, wean off Fio2 as tolerated, keep the Flow for peep, if needed switch to BiPAP IV Lasix 80 x 1 IV Cardizem 10 mg x1, may start drip if HR continue to be above 100 Continue Ab, follow ab final Cx sensivity Continue Tamsulosin Keep lynn cath DVT ppx SCD Checking INR daily, continue to hold Coumadin PFSH Medical History (Updated 07/30/21 @ 11:29 by Benedict Hernandez DO) Chronic anticoagulation Enlarged prostate Heart murmur (~2012) JOSELYN on CPAP Pancreatitis due to biliary obstruction (~2012) Paroxysmal atrial fibrillation Pre-diabetes Urinary incontinence Surgical History H/O prostate biopsy (~12/2016) History of AAA (abdominal aortic aneurysm) repair History of aortic valve replacement with metallic valve (11/19/12) History of lumbar surgery (~1989) Hx laparoscopic cholecystectomy (~06/2013) Family History Mother Hypertension Sister Gallstones Diabetes mellitus Social History marital status: household members: spouse occupational status: previously employed Smoking Status: Former smoker alcohol intake: current substance use type: does not use Current Medications Current Medications Medications: Home Medications amlodipine 5 mg tablet 5 mg PO DAILY 12/13/17 [History Confirmed 07/30/21] aspirin 81 mg tablet,delayed release 81 mg PO DAILY 12/13/17 [History Confirmed 07/30/21] cholecalciferol (vitamin D3) 25 mcg (1,000 unit) capsule 1,000 unit PO DAILY 12/13/17 [History Confirmed 07/30/21] docusate sodium 100 mg capsule 100 mg PO BID 12/13/17 [History Confirmed 09/15] lisinopril 20 mg tablet 20 mg PO DAILY 12/13/17 [History Confirmed 07/30/21] multivitamin 1 tab PO DAILY 12/13/17 [History Confirmed 07/30/21] tamsulosin 0.4 mg capsule 0.4 mg PO DAILY 12/13/17 [History Confirmed 07/30/21] warfarin 5 mg tablet 10 mg PO DAILY 02/27/18 [History Confirmed 07/30/21] ferrous sulfate 27 mg iron tablet 13.5 mg PO DAILY 07/30/21 [History Confirmed 07/30/21] metformin 500 mg tablet,extended release 24 hr 500 mg PO DAILY 07/30/21 [History Confirmed 07/30/21] Visit Medications (administered) Generic Name Dose Route Start Last Admin Trade Name Ghanshyamq PRN Reason Stop Dose Admin Acetaminophen 650 mg 07/30/21 15:47 07/31/21 12:06 Acetaminophen 325 Mg Tablet PO 650 mg Q6HR PRN Administration Fever/Mild Pain (1-3) Aspirin 81 mg 07/31/21 09:00 07/31/21 08:02 Aspirin Ec 81 Mg Tablet PO 81 mg DAILY RONALD Administration Docusate Sodium 100 mg 07/30/21 21:00 07/31/21 08:02 Docusate 100 Mg Capsule PO 100 mg BID RONALD Administration Cefepime HCl 1 gm/ Sodium 100 mls @ 200 mls/hr 07/30/21 17:45 07/31/21 05:11 Chloride IV 200 mls/hr Q12H RONALD Administration Levofloxacin 750 mg in 150 mls @ 100 mls/hr 07/31/21 12:00 07/31/21 11:13 Levaquin IV 100 mls/hr Q24H RONALD Administration Tamsulosin HCl 0.4 mg 07/31/21 09:00 07/31/21 08:03 Tamsulosin 0.4 Mg Capsule PO 0.4 mg DAILY RONALD Administration Exam Vital Signs (past 8 hours): - 07/31/21 07:24 07/31/21 07:55 07/31/21 10:26 Temperature 100 F H 100.0 F H Pulse Rate 75 88 Respiratory Rate 18 27 H Blood Pressure 133/57 L 171/89 H Pulse Oximetry 91 90 L 89 L 07/31/21 10:45 Temperature 100 F H Pulse Rate 121 H Respiratory Rate 27 H Blood Pressure 171/89 H Pulse Oximetry 89 L Oxygen Delivery Method Nasal Cannula Oxygen Flow Rate 3 Objective Labs Result Diagrams: 07/31/21 05:30 07/31/21 05:30 Labs: Laboratory Results - last 24 hr 07/30/21 07/30/21 07/30/21 08:45 14:20 19:25 WBC RBC Hgb Hct MCV MCH MCHC RDW Plt Count Neut % (Auto) Lymph % (Auto) [place] % (Auto) Eos % (Auto) Baso % (Auto) Neut # (Auto) Lymph # (Auto) [place] # (Auto) Eos # (Auto) Baso # (Auto) PT 70.8 H INR 5.9 H* ABG pH ABG pCO2 ABG pO2 ABG HCO3 ABG Total CO2 ABG O2 Saturation ABG Base Excess FiO2 Sodium Potassium Chloride Carbon Dioxide BUN Creatinine Estimated GFR BUN/Creatinine Ratio Glucose Calcium Troponin I 0.229 H* A. baumannii (PCR) Not detected Laine albicans (PCR) Not detected C. glabrata (PCR) Not detected C. krusei (PCR) Not detected C. parapsilosis (PCR) Not detected C. tropicalis (PCR) Not detected Enterobacteriac sp PCR Detected H E. cloacae complex PCR Not detected Enterococcus sp PCR Not detected E. coli (PCR) Detected H H. influenzae (PCR) Not detected Klebsiella oxytoca PCR Not detected Klebsiella pneumoniae Not detected List. monocytogenes PCR Not detected N. meningitidis (PCR) Not detected Proteus species (PCR) Not detected Serratia marcescens PCR Not detected Staphylococcus sp PCR Not detected Staph aureus (PCR) Not detected mecA-Methicil Res Gene Not Reportable Streptococcus sp PCR Not detected Group A Strep (PCR) Not detected Strep agalactiae (PCR) Not detected Strep pneumoniae (PCR) Not detected P. aeruginosa (PCR) Not detected Kelton/B-Vanco Res Genes Not Reportable KPC-Carbap Res Gene PCR Not detected 07/30/21 07/31/21 07/31/21 23:15 05:30 05:30 WBC 15.1 H RBC 3.92 L Hgb 11.2 L Hct 32.3 L MCV 82.2 MCH 28.5 MCHC 34.7 RDW 14.4 Plt Count 169 Neut % (Auto) 90.1 H Lymph % (Auto) 3.[address] % (Auto) 5.8 Eos % (Auto) 0.4 L Baso % (Auto) 0.3 Neut # (Auto) 55474 H Lymph # (Auto) [address] [place] # (Auto) 900 Eos # (Auto) 100 Baso # (Auto) 0 PT 63.2 H D INR 5.3 H* ABG pH ABG pCO2 ABG pO2 ABG HCO3 ABG Total CO2 ABG O2 Saturation ABG Base Excess FiO2 Sodium Potassium Chloride Carbon Dioxide BUN Creatinine Estimated GFR BUN/Creatinine Ratio Glucose Calcium Troponin I 0.213 H* A. baumannii (PCR) Laine albicans (PCR) C. glabrata (PCR) C. krusei (PCR) C. parapsilosis (PCR) C. tropicalis (PCR) Enterobacteriac sp PCR E. cloacae complex PCR Enterococcus sp PCR E. coli (PCR) H. influenzae (PCR) Klebsiella oxytoca PCR Klebsiella pneumoniae List. monocytogenes PCR N. meningitidis (PCR) Proteus species (PCR) Serratia marcescens PCR Staphylococcus sp PCR Staph aureus (PCR) mecA-Methicil Res Gene Streptococcus sp PCR Group A Strep (PCR) Strep agalactiae (PCR) Strep pneumoniae (PCR) P. aeruginosa (PCR) Kelton/B-Vanco Res Genes KPC-Carbap Res Gene PCR 07/31/21 07/31/21 05:30 12:52 WBC RBC Hgb Hct MCV MCH MCHC RDW Plt Count Neut % (Auto) Lymph % (Auto) [place] % (Auto) Eos % (Auto) Baso % (Auto) Neut # (Auto) Lymph # (Auto) [place] # (Auto) Eos # (Auto) Baso # (Auto) PT INR ABG pH 7.53 H ABG pCO2 22.0 L* ABG pO2 53 L ABG HCO3 18 L ABG Total CO2 19 L ABG O2 Saturation 92 L ABG Base Excess -4.0 L FiO2 Sodium 134 L Potassium 4.1 Chloride 105 Carbon Dioxide 21 L BUN 37 H Creatinine 1.21 Estimated GFR > 60 BUN/Creatinine Ratio 30.6 H Glucose 131 H Calcium 7.5 L Troponin I A. baumannii (PCR) Laine albicans (PCR) C. glabrata (PCR) C. krusei (PCR) C. parapsilosis (PCR) C. tropicalis (PCR) Enterobacteriac sp PCR E. cloacae complex PCR Enterococcus sp PCR E. coli (PCR) H. influenzae (PCR) Klebsiella oxytoca PCR Klebsiella pneumoniae List. monocytogenes PCR N. meningitidis (PCR) Proteus species (PCR) Serratia marcescens PCR Staphylococcus sp PCR Staph aureus (PCR) mecA-Methicil Res Gene Streptococcus sp PCR Group A Strep (PCR) Strep agalactiae (PCR) Strep pneumoniae (PCR) P. aeruginosa (PCR) Kelton/B-Vanco Res Genes KPC-Carbap Res Gene PCR Assessment & Plan Time Spent With Patient Critical Care time: I spent a total of [] minutes of critical care time on this patient's care today; this time is exclusive of procedural time. 50 min
[2021-07-31] MEDS: dilTIAZem 5 MG/ML SDV 10 MG IV (13:38)
--- NOTE | 2021-07-31 13:58 | PM.PN.1 ---
Subjective Subjective Date Patient Seen: 07/31/21 Interval history: 66-year-old male former smoker with history of mechanical heart valve, on warfarin, paroxysmal atrial fibrillation, abdominal aortic aneurysm repair, urinary retention?presented with fever and rigors and admitted for severe sepsis due to urinary source. Patient had continued high temps and rigors overnight. Blood culture from admit growing E coli. This afternoon he became acutely more hypoxic, severely hypertensive not responding to earlier IV Lasix and transfer to ICU. Exam Vital Signs (past 8 hours): - 07/31/21 07:24 07/31/21 07:55 07/31/21 10:26 Temperature 100 F H 100.0 F H Pulse Rate 75 88 Respiratory Rate 18 27 H Blood Pressure 133/57 L 171/89 H Pulse Oximetry 91 90 L 89 L 07/31/21 10:45 07/31/21 13:38 Temperature 100 F H Pulse Rate 121 H 135 H Respiratory Rate 27 H Blood Pressure 171/89 H 139/74 Pulse Oximetry 89 L Oxygen Delivery Method Nasal Cannula Oxygen Flow Rate 3 Narrative Exam Narrative: General: Patient looking ill with active rigors, tachypneic Lungs: Clear Heart: Tachycardic, irregular Extremities: Warm nonedematous Neurological: Oriented, anxious Objective Labs Result Diagrams: 07/31/21 05:30 07/31/21 05:30 Labs: Laboratory Results - last 24 hr 07/30/21 07/30/21 07/30/21 08:45 14:20 19:25 WBC RBC Hgb Hct MCV MCH MCHC RDW Plt Count Neut % (Auto) Lymph % (Auto) [place] % (Auto) Eos % (Auto) Baso % (Auto) Neut # (Auto) Lymph # (Auto) [place] # (Auto) Eos # (Auto) Baso # (Auto) PT 70.8 H INR 5.9 H* ABG pH ABG pCO2 ABG pO2 ABG HCO3 ABG Total CO2 ABG O2 Saturation ABG Base Excess FiO2 Sodium Potassium Chloride Carbon Dioxide BUN Creatinine Estimated GFR BUN/Creatinine Ratio Glucose Calcium Troponin I 0.229 H* A. baumannii (PCR) Not detected Laine albicans (PCR) Not detected C. glabrata (PCR) Not detected C. krusei (PCR) Not detected C. parapsilosis (PCR) Not detected C. tropicalis (PCR) Not detected Enterobacteriac sp PCR Detected H E. cloacae complex PCR Not detected Enterococcus sp PCR Not detected E. coli (PCR) Detected H H. influenzae (PCR) Not detected Klebsiella oxytoca PCR Not detected Klebsiella pneumoniae Not detected List. monocytogenes PCR Not detected N. meningitidis (PCR) Not detected Proteus species (PCR) Not detected Serratia marcescens PCR Not detected Staphylococcus sp PCR Not detected Staph aureus (PCR) Not detected mecA-Methicil Res Gene Not Reportable Streptococcus sp PCR Not detected Group A Strep (PCR) Not detected Strep agalactiae (PCR) Not detected Strep pneumoniae (PCR) Not detected P. aeruginosa (PCR) Not detected Kelton/B-Vanco Res Genes Not Reportable KPC-Carbap Res Gene PCR Not detected 07/30/21 07/31/21 07/31/21 23:15 05:30 05:30 WBC 15.1 H RBC 3.92 L Hgb 11.2 L Hct 32.3 L MCV 82.2 MCH 28.5 MCHC 34.7 RDW 14.4 Plt Count 169 Neut % (Auto) 90.1 H Lymph % (Auto) 3.4 L [place] % (Auto) 5.8 Eos % (Auto) 0.4 L Baso % (Auto) 0.3 Neut # (Auto) 55705 H Lymph # (Auto) 500 L [place] # (Auto) 900 Eos # (Auto) 100 Baso # (Auto) 0 PT 63.2 H D INR 5.3 H* ABG pH ABG pCO2 ABG pO2 ABG HCO3 ABG Total CO2 ABG O2 Saturation ABG Base Excess FiO2 Sodium Potassium Chloride Carbon Dioxide BUN Creatinine Estimated GFR BUN/Creatinine Ratio Glucose Calcium Troponin I 0.213 H* A. baumannii (PCR) Laine albicans (PCR) C. glabrata (PCR) C. krusei (PCR) C. parapsilosis (PCR) C. tropicalis (PCR) Enterobacteriac sp PCR E. cloacae complex PCR Enterococcus sp PCR E. coli (PCR) H. influenzae (PCR) Klebsiella oxytoca PCR Klebsiella pneumoniae List. monocytogenes PCR N. meningitidis (PCR) Proteus species (PCR) Serratia marcescens PCR Staphylococcus sp PCR Staph aureus (PCR) mecA-Methicil Res Gene Streptococcus sp PCR Group A Strep (PCR) Strep agalactiae (PCR) Strep pneumoniae (PCR) P. aeruginosa (PCR) Kelton/B-Vanco Res Genes KPC-Carbap Res Gene PCR 07/31/21 07/31/21 05:30 12:52 WBC RBC Hgb Hct MCV MCH MCHC RDW Plt Count Neut % (Auto) Lymph % (Auto) [place] % (Auto) Eos % (Auto) Baso % (Auto) Neut # (Auto) Lymph # (Auto) [place] # (Auto) Eos # (Auto) Baso # (Auto) PT INR ABG pH 7.53 H ABG pCO2 22.0 L* ABG pO2 53 L ABG HCO3 18 L ABG Total CO2 19 L ABG O2 Saturation 92 L ABG Base Excess -4.0 L FiO2 Sodium 134 L Potassium 4.1 Chloride 105 Carbon Dioxide 21 L BUN 37 H Creatinine 1.21 Estimated GFR > 60 BUN/Creatinine Ratio 30.6 H Glucose 131 H Calcium 7.5 L Troponin I A. baumannii (PCR) Laine albicans (PCR) C. glabrata (PCR) C. krusei (PCR) C. parapsilosis (PCR) C. tropicalis (PCR) Enterobacteriac sp PCR E. cloacae complex PCR Enterococcus sp PCR E. coli (PCR) H. influenzae (PCR) Klebsiella oxytoca PCR Klebsiella pneumoniae List. monocytogenes PCR N. meningitidis (PCR) Proteus species (PCR) Serratia marcescens PCR Staphylococcus sp PCR Staph aureus (PCR) mecA-Methicil Res Gene Streptococcus sp PCR Group A Strep (PCR) Strep agalactiae (PCR) Strep pneumoniae (PCR) P. aeruginosa (PCR) Kelton/B-Vanco Res Genes KPC-Carbap Res Gene PCR [facility] Medical History (Updated 07/30/21 @ 11:29 by Benedict Hernandez DO) Chronic anticoagulation Enlarged prostate Heart murmur (~2012) JOSELYN on CPAP Pancreatitis due to biliary obstruction (~2012) Paroxysmal atrial fibrillation Pre-diabetes Urinary incontinence Surgical History H/O prostate biopsy (~12/2016) History of AAA (abdominal aortic aneurysm) repair History of aortic valve replacement with metallic valve (11/19/12) History of lumbar surgery (~1989) Hx laparoscopic cholecystectomy (~06/2013) Family History Mother Hypertension Sister Gallstones Diabetes mellitus Social History marital status: household members: spouse occupational status: previously employed Smoking Status: Former smoker alcohol intake: current substance use type: does not use Assessment & Plan Assessment & Plan narrative: 1. Sepsis with acute organ dysfunction -presents with fever, hypotension and tachycardia, elevated lactate and FREDDY -likely source is UTI or prostatitis in patient with history of BPH and urinary retention and blood in urine and no other obvious source of infection -blood blood cultures from admit growing E coli, urine culture Gram-negative bacilli -received 30 male per kg IV volume resuscitation in ED -continue Levaquin 750 mg IV Q 48 hours started in the ED -continue cefepime 1 g IV q.12 hours for double coverage, narrow antibiotics once culture results available 2. Acute hypoxic respiratory failure secondary to volume overload from sepsis resuscitation -reviewed course of events with tele medical collections -patient on high-flow nasal cannula -re-evaluate patient after Lasix 80 mg IV 3. Acute kidney injury, improving -secondary to sepsis -no hydronephrosis on renal ultrasound -treat underlying etiology 4. Troponin leak -secondary to renal injury and sepsis -patient without chest discomfort or EKG changes -troponin trending down -telemetry -echo 5. Mechanical heart valve, atrial fibrillation, on warfarin -INR 5.9 on admit home dose of warfarin is 10 mg q.d. except 5 mg on -hold warfarin and recheck INR in a.m. -continue ASA 81 mg q.d. -INR still above 5 recheck in a.m. 6. Type 2 diabetes -hold metformin secondary to FREDDY -low-dose sliding scale 7. Hypertension -holding antihypertensive secondary to sepsis 8. BPH with acute urinary retention -patient with greater than 500 cc postvoid residual, Schmitt placed on 07/31 -increase tamsulosin to 0.8 mg daily Code status: Full code DVT prophylaxis:? On warfarin Time Spent With Patient Critical Care time: I spent a total of [] minutes of critical care time on this patient's care today; this time is exclusive of procedural time. Quality VTE Deep Vein Thrombosis/Pulmonary Embolism Present on Admission: No
[2021-07-31] MEDS: VANCOMYCIN 1,500 MG/300 ML PIGGYBACK 200 MG IV (14:28)
--- NOTE | 2021-07-31 20:27 | PM.ICURNDS ---
- :: This patient was seen via real time interactive two-way audiovisual telecommunication. Note: patient repeat labs pending. Currnetly on high flow, but seems tachypneic, speakign full sentences though. HR imrpoved. may need to switch to bipap. Will roder a repeat ABG. MAP improved from earlier in the afternoon folllwing diuresis. will closely monitor UO overnight
[2021-07-31 21:04] LABS: BUN Creatinine Ratio 27.7 (6-22); Blood Urea Nitrogen 36 mg/dL (9-20); Calcium 7.6 mg/dL (8.4-10.2); Carbon Dioxide 21 mmol/L (22-32); Chloride 101 mmol/L (98-107); Estimated Glomerular Filt Rate 60 mL/min (>60); Glucose 222 mg/dL (80-110); HEMOLYSIS < 15 (0-50); Magnesium 1.9 mg/dL (1.6-2.3); Sodium 132 mmol/L (137-145)
[2021-07-31 21:08] LABS: Add Manual Diff / Slide Review YES; Hematocrit 31.4 % (41-53); Hemoglobin 10.6 g/dL (13.5-17.5); Mean Corpuscular HGB Conc 33.8 % (30-36); Mean Corpuscular Hemoglobin 27.7 PG (26-34); Mean Corpuscular Volume 82.1 fL (80-100); Platelet Count 181 X10^3/uL (150-400); Red Blood Cell Count 3.83 X10^6/uL (4.5-5.9); Red Cell Distribution Width 14.6 % (11.6-14.8); White Blood Cell Count 15.9 X10^3/uL (4.5-11.0)
[2021-07-31] MEDS: HALOPERIDOL 5 MG/ML VIAL 2 MG IV (21:42)
--- NOTE | 2021-07-31 21:47 | PM.EICU.INT ---
Teleintensivist Intervention Date/Time Was camera activated?: Yes Date Patient Seen: 07/31/21 Time Patient Seen: 21:30 Issue(s) Addressed Issue(s): Resp. Distress/Ventilator management Intervention(s) :: Respiratory distress / rapid AF -> 1) Lasix 80 mg; 2) Amiodarone
[2021-07-31] MEDS: AMIODARONE 150 MG/100 ML PIGGYBACK 600 MG IV (22:05)
[2021-07-31] MEDS: AMIODARONE 360 MG/200 ML PIGGYBACK 33.33 MG IV (22:06)
--- NOTE | 2021-07-31 22:59 | PC.NURSE ---
Addendum entered by Wendi Donis R.N. 08/01/21 05:44: Pt became increasingly short of breath, RR in the 50s and 60's, increasing confusion. Sr. Strategic Sourcing Manager called and ordered urgent intubation. RSI meds given for intubation per ER physician, Propofol and fentanyl started for sedation. Additional sedation required and Ativan 4mg IV given as ordered. CXR done to confirm placement of ET and OG tube. Soft wrist restraints applied per protocol. Hospitalist notified of events and Pt's called. Original Note: 2300- At 2030 pt placed on bipap per preforming machine operator order, Pt became anxious and RR increased to the 50's, SPO2 decreased to the high 80's. Sr. Strategic Sourcing Manager notified of change in pt condition, Haldol 2mg given @ 2130. Pt continued tachypenic and began having shaking chill. Temp increased slightly to 100.3F. Lasix 80mg given and Amiodarone gtt started. Pt took bipap off - placed back on heated high flow. Sr. Strategic Sourcing Manager notified. Breath sounds throughout episode were unchanged from initial assessment, clear bilaterally.
[2021-07-31 23:00] LABS: Neutrophils Absolute Manual 15264 /uL (3000-5900); Total Cells Counted 100; Toxic Vacuolation Present
[2021-08-01] VITALS (67 sets, daily range): BP systolic 74–165; BP diastolic 43–82; PULSE 64–128; RESP 16–67; TEMP 36.3–38.8; O2SAT 87–100
[2021-08-01] MEDS: SODIUM CHLORIDE 0.9% 250 ML 21 ML IV (01:51)
--- NOTE | 2021-08-01 03:20 | DI.RAD.S_ITS ---
PROCEDURE: XR CHEST 1V INDICATIONS: post intubation TECHNIQUE: One view of the chest was acquired. COMPARISON: [facility], CR, XR CHEST 1V, 07/30/2021, 9:53. [facility], CR, XR CHEST 1V, 07/31/2021, 12:45. FINDINGS: Surgical changes and devices: There is an endotracheal tube 4 cm above neda. A nasogastric tube is noted with the tip in the mid to distal esophagus on the 1st image. Subsequently, the nasogastric fluid is advanced into the stomach on the 2nd image. Sternotomy. There is a aortic valve prosthesis. Lungs and pleura: Bilateral airspace opacities compatible with pulmonary edema or bilateral pneumonia. No pleural effusions or pneumothorax. Mediastinum: Mediastinal contours appear normal. Heart size is normal. Bones and chest wall: No suspicious bony lesions. Overlying soft tissues appear unremarkable. IMPRESSION: 1. Endotracheal tube 4 cm above neda. 2. Nasogastric tube in the stomach. 3. Bilateral airspace infiltrates compatible with pulmonary edema or bilateral pneumonia. No significant discrepancy with the retail shift supervisor radiology preliminary report. Dictated by: Krissy Perera M.D. on 08/01/2021 at 7:18 Approved by: Krissy Perera M.D. on 08/01/2021 at 7:22
[2021-08-01] MEDS: SUCCINYLCHOLINE 200 MG/10 ML VIAL 125 MG IV (03:31)
[2021-08-01] MEDS: ETOMIDATE 2 MG/ML 10 ML VIAL 20 MG IV ×2 (03:31→03:51)
[2021-08-01] MEDS: propofoL 200 MG/20 ML VIAL 100 MG IV (03:45)
[2021-08-01] MEDS: fentaNYL 1,000 MCG in DEXTROSE 5% IN WATER 250 ML 19.732 ML IV (03:50)
[2021-08-01] MEDS: propofoL 1,000 MG/100 ML VIAL 3.132 MG IV (03:52)
[2021-08-01] MEDS: AMIODARONE 360 MG/200 ML PIGGYBACK 16.7 MG IV (04:01)
--- NOTE | 2021-08-01 04:10 | PM.PROC.1 ---
Procedures Date/Time Date of procedure: 08/01/21 Time of procedure: 04:12 Intubation Time out performed: Yes Sedative: etomidate Mg given: 20 Paralytic: succinylcholine Mg given: 125 Laryngoscope: fiber optic video scope ET tube size: 7.5 ET tube uncuffed: No Tube secured depth (cm): 25 Tube secured location: teeth Tube placement confirmation: visualized tube passing through cords, equal breath sounds bilaterally and confirmation by capnometry Patient tolerated procedure: other (Hypoxia) Intubation complications: hypoxia Additional comments: Patient did become hypoxic with the oxygen saturations the low 80s medially after the procedure. This did improve with bag-valve mask. Due to complications with the ventilator the patient is need to be bagged for a period of time afterwards. He did start to wake up. A 2nd dose of 20 mg of etomidate was administered. Patient still was tachypneic and oxygen saturations the low 90s. Propofol have been ordered by the publishing manager. 100 mg bolus was administered which did seem to provide sedation. The patient was then placed on ventilator.
[2021-08-01] MEDS: LORazepam 2 MG/ML INJ 4 MG IV (04:58)
[2021-08-01 05:02] LABS: Hematocrit 34.2 % (41-53); Hemoglobin 11.6 g/dL (13.5-17.5); Mean Corpuscular HGB Conc 33.8 % (30-36); Mean Corpuscular Hemoglobin 27.7 PG (26-34); Platelet Count 206 X10^3/uL (150-400); Red Blood Cell Count 4.18 X10^6/uL (4.5-5.9); Red Cell Distribution Width 14.5 % (11.6-14.8)
[2021-08-01 05:03] LABS: Add Manual Diff / Slide Review YES
[2021-08-01 05:09] LABS: pH ABG 7.41 (7.35-7.45)
[2021-08-01 05:10] LABS: Fractionated Inspired Oxygen 55; HCO3 ABG 22 mmol/L (22-26); Oxygen Saturation ABG 89 % (95-100); PCO2 ABG 35.3 mmHg (35-45); PO2 ABG 57 mmHg (80-100); TCO2 ABG 23 mmol/L (21-31)
[2021-08-01] MEDS: CEFEPIME 1 GM in SODIUM CHLORIDE 0.9% 100 ML 200 ML IV (05:17)
[2021-08-01 05:25] LABS: Prothrombin Time 110.6 SECONDS (10.1-12.7)
[2021-08-01 06:39] LABS: Chloride 100 mmol/L (98-107); Potassium 3.9 mmol/L (3.4-5.1); Sodium 129 mmol/L (137-145)
[2021-08-01 06:40] LABS: BUN Creatinine Ratio 28.9 (6-22); Blood Urea Nitrogen 37 mg/dL (9-20); Calcium 7.8 mg/dL (8.4-10.2); Carbon Dioxide 23 mmol/L (22-32); Estimated Glomerular Filt Rate > 60 mL/min (>60); Glucose 274 mg/dL (80-110)
[2021-08-01 06:47] LABS: Alanine Aminotransferase 28 IU/L (<50); Albumin 3.1 g/dL (3.5-5.0); Alkaline Phosphatase 120 U/L (38-126); Aspartate Aminotransferase 59 IU/L (17-59); Bilirubin Total 0.9 mg/dL (0.2-1.3); Globulin 3.2 g/dL (1.7-4.1); HEMOLYSIS < 15 (0-50); Total Protein 6.3 g/dL (6.3-8.2)
[2021-08-01] MEDS: PHENYLEPHRINE 20,000 MCG in DEXTROSE 5% IN WATER 250 ML 75 ML IV (06:49)
[2021-08-01 06:50] LABS: Neutrophils Absolute Manual 18800 /uL (3000-5900); RBC Morphology Normal Morphology; Total Cells Counted 100
[2021-08-01] MEDS: PANTOPRAZOLE 40 MG VIAL IV (08:39)
[2021-08-01] MEDS: HYDROCORTISONE 100 MG/2 ML VIAL IV (08:39)
[2021-08-01] MEDS: PHYTONADIONE (VIT K1) 5 MG in SODIUM CHLORIDE 0.9% 100 ML 201 ML IV (08:49)
[2021-08-01] MEDS: VASOPRESSIN 20 UNIT in SODIUM CHLORIDE 0.9% 100 ML 6.06 ML IV (08:53)
[2021-08-01] MEDS: CHLORHEXIDINE GLUCONATE 15 ML CUP PO ×2 (08:55→11:25)
--- NOTE | 2021-08-01 09:03 | PM.PN.1 ---
Subjective Subjective Date Patient Seen: 08/01/21 Interval history: 66-year-old male former smoker with history of mechanical heart valve, on warfarin, paroxysmal atrial fibrillation, abdominal aortic aneurysm repair, urinary retention?presented with fever and rigors and admitted for severe sepsis due to urinary source. Patient was transferred to the ICU yesterday due to acute respiratory distress and severe hypoxia from fluid overload. Chest x-ray showed pulmonary edema. He was effectively diuresed and seemed to be doing much better as of yesterday evening prior to end of shift with improvement in O2 sats, elevated BP and tachycardia as well as clinically looking much better. However later in the evening he acutely decompensated with drop in O2 sat in the 60s and ended up intubated. This morning patient is intubated and over breathing the vent. He is more hypotensive in spite of epinephrine pressor support. He did put out about 3.5 L after IV Lasix yesterday but this morning urine output has dropped off. After 1 L LR bolus BP is dropping into 70 systolic and vasopressor added per tele spaghetti machine operator recommendations. WBC has increased today as well. Exam Vital Signs (past 8 hours): - 08/01/21 01:08 08/01/21 01:15 08/01/21 01:30 Temperature Pulse Rate 86 83 105 H Respiratory Rate 32 H 45 H 51 H Blood Pressure 112/55 L 122/59 L 132/63 Pulse Oximetry 100 94 92 08/01/21 01:45 08/01/21 02:00 08/01/21 02:15 Temperature Pulse Rate 108 H 128 H 103 H Respiratory Rate 53 H 41 H 43 H Blood Pressure 159/66 H 146/65 H 131/60 Pulse Oximetry 94 93 94 08/01/21 02:30 08/01/21 02:45 08/01/21 03:00 Temperature Pulse Rate 112 H 110 H 119 H Respiratory Rate 53 H 60 H 51 H Blood Pressure 132/61 132/61 151/68 H Pulse Oximetry 94 93 94 08/01/21 03:08 08/01/21 03:15 08/01/21 03:28 Temperature Pulse Rate 121 H 124 H 113 H Respiratory Rate 63 H 55 H 67 H Blood Pressure 165/82 H 153/69 H Pulse Oximetry 89 L 87 L 98 08/01/21 03:30 08/01/21 03:44 08/01/21 03:58 Temperature Pulse Rate 118 H 99 H 108 H Respiratory Rate 65 H 56 H 48 H Blood Pressure 126/61 157/74 H Pulse Oximetry 90 L 90 L 94 08/01/21 04:00 08/01/21 04:06 08/01/21 04:14 Temperature Pulse Rate 110 H 95 H 114 H Respiratory Rate 32 H 32 H 59 H Blood Pressure 110/54 L 150/70 H Pulse Oximetry 97 95 93 08/01/21 04:30 08/01/21 05:00 08/01/21 05:11 Temperature 97.3 F L Pulse Rate 125 H 121 H 123 H Respiratory Rate 45 H 40 H 29 H Blood Pressure 143/65 H 143/68 H Pulse Oximetry 91 93 92 08/01/21 05:30 08/01/21 06:00 08/01/21 06:01 Temperature Pulse Rate 122 H 122 H 121 H Respiratory Rate 31 H 30 H 29 H Blood Pressure 88/51 L Pulse Oximetry 93 95 95 08/01/21 06:02 08/01/21 06:07 08/01/21 06:15 Temperature Pulse Rate 122 H 120 H 121 H Respiratory Rate 29 H 30 H 31 H Blood Pressure 83/47 L 91/55 L 88/52 L Pulse Oximetry 95 95 95 08/01/21 06:17 08/01/21 07:11 Temperature Pulse Rate 123 H Respiratory Rate 29 H Blood Pressure 98/49 L Pulse Oximetry 95 94 Fraction of Inspired Oxygen 35 Oxygen Delivery Method Mechanical Ventilation Oxygen Flow Rate 50 Narrative Exam Narrative: General: Male sedated on vent Lungs: Clear anteriorly Heart: Irregularly irregular Abdomen: Soft Extremities: Warm nonedematous Skin: No rash, hematoma or petechia Objective Labs Result Diagrams: 08/01/21 04:25 08/01/21 04:25 Labs: Laboratory Results - last 24 hr 07/31/21 07/31/21 07/31/21 12:52 20:40 20:40 WBC 15.9 H RBC 3.83 L Hgb 10.6 L Hct 31.4 L MCV 82.1 MCH 27.7 MCHC 33.8 RDW 14.6 Plt Count 181 Neut % (Auto) Not Reportable Lymph % (Auto) Not Reportable [place] % (Auto) Not Reportable Eos % (Auto) Not Reportable Baso % (Auto) Not Reportable Lymph # (Auto) Not Reportable [place] # (Auto) Not Reportable Baso # (Auto) Not Reportable Total Counted 100 Seg Neutrophils % 89.0 H D Band Neutrophils % 7.0 Lymphocytes % (Manual) 2.0 L Monocytes % (Manual) 2.0 Neutrophils # (Manual) 83082 H Toxic Vacuolation Present H RBC Morphology See below PT INR ABG pH 7.53 H ABG pCO2 22.0 L* ABG pO2 53 L ABG HCO3 18 L ABG Total CO2 19 L ABG O2 Saturation 92 L ABG Base Excess -4.0 L FiO2 Sodium 132 L Potassium 4.0 Chloride 101 Carbon Dioxide 21 L BUN 36 H Creatinine 1.30 H Estimated GFR 60 BUN/Creatinine Ratio 27.7 H Glucose 222 H Calcium 7.6 L Phosphorus 3.0 Magnesium 1.9 Total Bilirubin AST ALT Alkaline Phosphatase Total Protein Albumin Globulin Albumin/Globulin Ratio 08/01/21 08/01/21 08/01/21 04:25 04:25 04:25 WBC 20.0 H RBC 4.18 L Hgb 11.6 L Hct 34.2 L MCV 82.0 MCH 27.7 MCHC 33.8 RDW 14.5 Plt Count 206 Neut % (Auto) Not Reportable Lymph % (Auto) Not Reportable [place] % (Auto) Not Reportable Eos % (Auto) Not Reportable Baso % (Auto) Not Reportable Lymph # (Auto) Not Reportable [place] # (Auto) Not Reportable Baso # (Auto) Not Reportable Total Counted 100 Seg Neutrophils % 88.0 H Band Neutrophils % 6.0 Lymphocytes % (Manual) 4.0 L Monocytes % (Manual) 2.0 Neutrophils # (Manual) 56707 H Toxic Vacuolation RBC Morphology Normal morphology PT 110.6 H D INR Not Reportable ABG pH ABG pCO2 ABG pO2 ABG HCO3 ABG Total CO2 ABG O2 Saturation ABG Base Excess FiO2 Sodium Cancelled Potassium Cancelled Chloride Cancelled Carbon Dioxide Cancelled BUN Cancelled Creatinine Cancelled Estimated GFR Cancelled BUN/Creatinine Ratio Cancelled Glucose Cancelled Calcium Cancelled Phosphorus Magnesium Total Bilirubin AST ALT Alkaline Phosphatase Total Protein Albumin Globulin Albumin/Globulin Ratio 08/01/21 08/01/21 04:25 04:30 WBC RBC Hgb Hct MCV MCH MCHC RDW Plt Count Neut % (Auto) Lymph % (Auto) [place] % (Auto) Eos % (Auto) Baso % (Auto) Lymph # (Auto) [place] # (Auto) Baso # (Auto) Total Counted Seg Neutrophils % Band Neutrophils % Lymphocytes % (Manual) Monocytes % (Manual) Neutrophils # (Manual) Toxic Vacuolation RBC Morphology PT INR ABG pH 7.41 ABG pCO2 35.3 ABG pO2 57 L ABG HCO3 22 ABG Total CO2 23 ABG O2 Saturation 89 L ABG Base Excess -3.0 L FiO2 55 Sodium 129 L Potassium 3.9 Chloride 100 Carbon Dioxide 23 BUN 37 H Creatinine 1.28 H Estimated GFR > 60 BUN/Creatinine Ratio 28.9 H Glucose 274 H Calcium 7.8 L Phosphorus Magnesium Total Bilirubin 0.9 AST 59 ALT 28 Alkaline Phosphatase 120 Total Protein 6.3 Albumin 3.1 L Globulin 3.2 Albumin/Globulin Ratio 1.0 PFSH Medical History (Updated 07/30/21 @ 11:29 by Benedict Hernandez DO) Chronic anticoagulation Enlarged prostate Heart murmur (~2012) JOSELYN on CPAP Pancreatitis due to biliary obstruction (~2012) Paroxysmal atrial fibrillation Pre-diabetes Urinary incontinence Surgical History H/O prostate biopsy (~12/2016) History of AAA (abdominal aortic aneurysm) repair History of aortic valve replacement with metallic valve (11/19/12) History of lumbar surgery (~1989) Hx laparoscopic cholecystectomy (~06/2013) Family History Mother Hypertension Sister Gallstones Diabetes mellitus Social History marital status: household members: spouse occupational status: previously employed Smoking Status: Former smoker alcohol intake: current substance use type: does not use Assessment & Plan Assessment & Plan narrative: 1. Severe sepsis with acute organ dysfunction -presents with fever, hypotension and tachycardia, elevated lactate and FREDDY -likely source is urinary in patient with history of BPH and urinary retention and blood in urine -blood in urine cultures from admission growing E coli sensitive to current antibiotics -received initial 30 ml per kg IV volume resuscitation in ED -current antibiotics: Meropenem 500 mg IV q.6 hours, Levaquin 750 mg IV Q 24 hours -continue pressor support to maintain map 65-70 -fluid bolus as needed -WBC up from yesterday but decrease in bands and no fever overnight -PICC line 2. Acute hypoxic respiratory failure secondary to sepsis complications and volume overload -intubated evening of 07/31 -continue ventilator management per RT -discussed with tele spaghetti machine operator 3. Acute kidney injury, improving -secondary to sepsis -no hydronephrosis on renal ultrasound -treat underlying etiology -urine output being monitored with Schmitt catheter 4. Troponin leak -secondary to renal injury and sepsis -patient without chest discomfort or EKG changes -recheck troponin -telemetry -echo 5. Mechanical heart valve, atrial fibrillation, high INR on warfarin -INR 5.9 on admit home dose of warfarin is 10 mg q.d. except 5 mg on -hold warfarin due to elevated INR -vitamin K 5 mg IV given on 08/01 due to INR > 10 -check daily INR and monitor for blood in ETT and catheter 6. Type 2 diabetes -holding metformin -low-dose sliding scale, CBG goal 140-180 7. Hypertension -holding antihypertensive meds 8. BPH with acute urinary retention -patient with greater than 500 cc postvoid residual, Schmitt placed on 07/31 -increased tamsulosin to 0.8 mg daily Code status: Full code DVT prophylaxis:? On warfarin Time Spent With Patient Critical Care time: I spent a total of [] minutes of critical care time on this patient's care today; this time is exclusive of procedural time. Quality VTE Deep Vein Thrombosis/Pulmonary Embolism Present on Admission: No
[2021-08-01] MEDS: PHENYLEPHRINE 20,000 MCG in DEXTROSE 5% IN WATER 250 ML 135 ML IV (09:06)
--- NOTE | 2021-08-01 09:48 | P.TELICUPN_ITS ---
Subjective Subjective If camera was activated, add TeleICU A-V statement: Pt was intubated overnight, pressor requirements increased, anuric this Am. Assessment: Acute Hypoxemic resp failure 2/2 pul edema Septic shock 2/2 E coli UTI , prostatitis and bacteremia FREDDY stage III / Anuric A fib w RVR Hypertensive urgency Acute urinary retention Type II NM Elevated INR 2/2 sepsis and Coumadin H/o of Mechanical AVR Mild hyponatremia ? Rec: Adjusted Vent sitting 16/540 (6 ml/kg)/8/40%, sat 94, pending ABG repeat, daily ABG and CXR Pt received 500 ml of LR bolus and IV drips ranges between 300 -500 ml per nurs e, recommend to no further fluid boluses, concentrate the drips ( discussed with pharmacy) as hypervolumia will worsens and will worsen the FREDDY, will consdier diuresis when HD improves and off or on small dose of pressor. Levo changed to Tito bec of RVR, added Vaso & stress dose steroid (IV hydroco rtisone) Continue Amiodaron drip per protocol Sedation with propfol and fentanyl Broaden spectrum of Ab to Meropenem, cont levaquin, follow ab final Cx sensivity Pharmacy to adjust dosing of meds per Zero GFR for now Continue Tamsulosin Keep lynn cath, check bladder scan No FWF, hold starting TF until only on one pressor and the dose is small Checking INR daily, continue to hold Coumadin, 1 dose of Coumadin as INR>10 and mild intermittent bloody secretion when suctioned ( HB stable and no significant bleed) DVT ppx SCD PPI for GI ppx Plan discussed with the hospitalist, pharmacist & RN CCT 50 min Current Medications Current Medications Medications: Home Medications amlodipine 5 mg tablet 5 mg PO DAILY 12/13/17 [History Confirmed 07/30/21] aspirin 81 mg tablet,delayed release 81 mg PO DAILY 12/13/17 [History Confirmed 07/30/21] cholecalciferol (vitamin D3) 25 mcg (1,000 unit) capsule 1,000 unit PO DAILY 12/13/17 [History Confirmed 07/30/21] docusate sodium 100 mg capsule 100 mg PO BID 12/13/17 [History Confirmed 07/30/21] lisinopril 20 mg tablet 20 mg PO DAILY 12/13/17 [History Confirmed 07/30/21] multivitamin 1 tab PO DAILY 12/13/17 [History Confirmed 07/30/21] tamsulosin 0.4 mg capsule 0.4 mg PO DAILY 12/13/17 [History Confirmed 07/30/21] warfarin 5 mg tablet 10 mg PO DAILY 02/27/18 [History Confirmed 07/30/21] ferrous sulfate 27 mg iron tablet 13.5 mg PO DAILY 07/30/21 [History Confirmed 07/30/21] metformin 500 mg tablet,extended release 24 hr 500 mg PO DAILY 07/30/21 [History Confirmed 07/30/21] Visit Medications (administered) Generic Name Dose Route Start Last Admin Trade Name Freq PRN Reason Stop Dose Admin Acetaminophen 650 mg 07/30/21 15:47 07/31/21 12:06 Acetaminophen 325 Mg Tablet PO 650 mg Q6HR PRN Administration Fever/Mild Pain (1-3) Aspirin 81 mg 07/31/21 09:00 07/31/21 08:02 Aspirin Ec 81 Mg Tablet PO 81 mg DAILY RONALD Administration Chlorhexidine Gluconate 15 ml 08/01/21 06:00 08/01/21 08:55 Chlorhexidine Gluconate 15 Ml Cup PO 15 ml Q6HR RONALD Administration Docusate Sodium 100 mg 07/30/21 21:00 07/31/21 20:45 Docusate 100 Mg Capsule PO 100 mg BID RONALD Administration Hydrocortisone 100 mg 08/01/21 08:30 08/01/21 08:39 Hydrocortisone 100 Mg/2 Ml Vial IV 100 mg Q8H RONALD Administration Levofloxacin 750 mg in 150 mls @ 100 mls/hr 07/31/21 12:00 07/31/21 19:59 Levaquin IV Infused Q24H RONALD Infusion Amiodarone HCl/Dextrose 360 mg in 200 mls @ 16.7 mls/hr 08/01/21 04:00 08/01/21 04:01 Nexterone IV 08/01/21 15:59 16.7 mls/hr CONT RONALD 16.7 mls/hr Administration Protocol Sodium Chloride 250 mls @ 21 mls/hr 08/01/21 01:37 08/01/21 01:51 Normal Saline 0.9% IV 21 mls/hr Q24H PRN Administration Flush Fentanyl 1,000 mcg/ Dextrose 270 mls @ 19.732 mls/hr 08/01/21 03:30 08/01/21 06:11 IV 1 mcg/kg/hr TITRATE RONALD 28.188 mls/hr Titration Protocol 0.7 MCG/KG/HR Propofol 1,000 mg in 100 mls @ 3.132 mls/hr 08/01/21 03:30 08/01/21 06:12 Propofol IV 10 mcg/kg/min TITRATE RONALD 6.264 mls/hr Titration Protocol 5 MCG/KG/MIN NOREPINEPHRINE BITARTRATE/D5W 4 mg in 250 mls @ 30 mls/hr 08/01/21 03:29 08/01/21 04:35 Levophed IV Not Given TITRATE RONALD Protocol 8 MCG/MIN Phenylephrine HCl 20,000 mcg/ 250 mls @ 75 mls/hr 08/01/21 06:11 08/01/21 09:06 Dextrose IV 180 mcg/min TITRATE RONALD 135 mls/hr Administration Protocol 100 MCG/MIN Vasopressin 20 unit/ Sodium 101 mls @ 6.06 mls/hr 08/01/21 08:28 08/01/21 08:53 Chloride IV 0.02 unit/min TITRATE RONALD 6.06 mls/hr Administration 0.02 UNIT/MIN Pantoprazole Sodium 40 mg 08/01/21 09:00 08/01/21 08:39 Pantoprazole 40 Mg Vial IV 40 mg DAILY RONALD Administration Objective Ventilator Parameters: Ventilator Settings FiO2 40 RT Vent Frequency 16 Ventilator Tidal Volume 600 Exhaled Vt/kg IBW 7 Positive End Expiratory 8 Pressure Inspiratory Phase Time 0.8 I:E Ratio 1:3.7 Patient Position HOB >= 30 degrees Labs Result Diagrams: 08/01/21 04:25 08/01/21 04:25 Labs: Laboratory Results - last 24 hr 07/31/21 07/31/21 07/31/21 12:52 20:40 20:40 WBC 15.9 H RBC 3.83 L Hgb 10.6 L Hct 31.4 L MCV 82.1 MCH 27.7 MCHC 33.8 RDW 14.6 Plt Count 181 Neut % (Auto) Not Reportable Lymph % (Auto) Not Reportable [place] % (Auto) Not Reportable Eos % (Auto) Not Reportable Baso % (Auto) Not Reportable Lymph # (Auto) Not Reportable [place] # (Auto) Not Reportable Baso # (Auto) Not Reportable Total Counted 100 Seg Neutrophils % 89.0 H D Band Neutrophils % 7.0 Lymphocytes % (Manual) 2.0 L Monocytes % (Manual) 2.0 Neutrophils # (Manual) 76825 H Toxic Vacuolation Present H RBC Morphology See below PT INR ABG pH 7.53 H ABG pCO2 22.0 L* ABG pO2 53 L ABG HCO3 18 L ABG Total CO2 19 L ABG O2 Saturation 92 L ABG Base Excess -4.0 L FiO2 Sodium 132 L Potassium 4.0 Chloride 101 Carbon Dioxide 21 L BUN 36 H Creatinine 1.30 H Estimated GFR 60 BUN/Creatinine Ratio 27.7 H Glucose 222 H Calcium 7.6 L Phosphorus 3.0 Magnesium 1.9 Total Bilirubin AST ALT Alkaline Phosphatase Total Protein Albumin Globulin Albumin/Globulin Ratio 08/01/21 08/01/21 08/01/21 04:25 04:25 04:25 WBC 20.0 H RBC 4.18 L Hgb 11.6 L Hct 34.2 L MCV 82.0 MCH 27.7 MCHC 33.8 RDW 14.5 Plt Count 206 Neut % (Auto) Not Reportable Lymph % (Auto) Not Reportable [place] % (Auto) Not Reportable Eos % (Auto) Not Reportable Baso % (Auto) Not Reportable Lymph # (Auto) Not Reportable [place] # (Auto) Not Reportable Baso # (Auto) Not Reportable Total Counted 100 Seg Neutrophils % 88.0 H Band Neutrophils % 6.0 Lymphocytes % (Manual) 4.0 L Monocytes % (Manual) 2.0 Neutrophils # (Manual) 90313 H Toxic Vacuolation RBC Morphology Normal morphology PT 110.6 H D INR Not Reportable ABG pH ABG pCO2 ABG pO2 ABG HCO3 ABG Total CO2 ABG O2 Saturation ABG Base Excess FiO2 Sodium Cancelled Potassium Cancelled Chloride Cancelled Carbon Dioxide Cancelled BUN Cancelled Creatinine Cancelled Estimated GFR Cancelled BUN/Creatinine Ratio Cancelled Glucose Cancelled Calcium Cancelled Phosphorus Magnesium Total Bilirubin AST ALT Alkaline Phosphatase Total Protein Albumin Globulin Albumin/Globulin Ratio 08/01/21 08/01/21 04:25 04:30 WBC RBC Hgb Hct MCV MCH MCHC RDW Plt Count Neut % (Auto) Lymph % (Auto) [place] % (Auto) Eos % (Auto) Baso % (Auto) Lymph # (Auto) [place] # (Auto) Baso # (Auto) Total Counted Seg Neutrophils % Band Neutrophils % Lymphocytes % (Manual) Monocytes % (Manual) Neutrophils # (Manual) Toxic Vacuolation RBC Morphology PT INR ABG pH 7.41 ABG pCO2 35.3 ABG pO2 57 L ABG HCO3 22 ABG Total CO2 23 ABG O2 Saturation 89 L ABG Base Excess -3.0 L FiO2 55 Sodium 129 L Potassium 3.9 Chloride 100 Carbon Dioxide 23 BUN 37 H Creatinine 1.28 H Estimated GFR > 60 BUN/Creatinine Ratio 28.9 H Glucose 274 H Calcium 7.8 L Phosphorus Magnesium Total Bilirubin 0.9 AST 59 ALT 28 Alkaline Phosphatase 120 Total Protein 6.3 Albumin 3.1 L Globulin 3.2 Albumin/Globulin Ratio 1.0 Exam Vital Signs (past 8 hours): - 08/01/21 02:00 08/01/21 02:15 08/01/21 02:30 Temperature Pulse Rate 128 H 103 H 112 H Respiratory Rate 41 H 43 H 53 H Blood Pressure 146/65 H 131/60 132/61 Pulse Oximetry 93 94 94 08/01/21 02:45 08/01/21 03:00 08/01/21 03:08 Temperature Pulse Rate 110 H 119 H 121 H Respiratory Rate 60 H 51 H 63 H Blood Pressure 132/61 151/68 H Pulse Oximetry 93 94 89 L 08/01/21 03:15 08/01/21 03:28 08/01/21 03:30 Temperature Pulse Rate 124 H 113 H 118 H Respiratory Rate 55 H 67 H 65 H Blood Pressure 165/82 H 153/69 H Pulse Oximetry 87 L 98 90 L 08/01/21 03:44 08/01/21 03:58 08/01/21 04:00 Temperature Pulse Rate 99 H 108 H 110 H Respiratory Rate 56 H 48 H 32 H Blood Pressure 126/61 157/74 H Pulse Oximetry 90 L 94 97 08/01/21 04:06 08/01/21 04:14 08/01/21 04:30 Temperature Pulse Rate 95 H 114 H 125 H Respiratory Rate 32 H 59 H 45 H Blood Pressure 110/54 L 150/70 H Pulse Oximetry 95 93 91 08/01/21 05:00 08/01/21 05:11 08/01/21 05:30 Temperature 97.3 F L Pulse Rate 121 H 123 H 122 H Respiratory Rate 40 H 29 H 31 H Blood Pressure 143/65 H 143/68 H Pulse Oximetry 93 92 93 08/01/21 06:00 08/01/21 06:01 08/01/21 06:02 Temperature Pulse Rate 122 H 121 H 122 H Respiratory Rate 30 H 29 H 29 H Blood Pressure 88/51 L 83/47 L Pulse Oximetry 95 95 95 08/01/21 06:07 08/01/21 06:15 08/01/21 06:17 Temperature Pulse Rate 120 H 121 H 123 H Respiratory Rate 30 H 31 H 29 H Blood Pressure 91/55 L 88/52 L 98/49 L Pulse Oximetry 95 95 95 08/01/21 07:00 08/01/21 07:11 Temperature 97.6 F Pulse Rate Respiratory Rate Blood Pressure Pulse Oximetry 94 Fraction of Inspired Oxygen 35 Oxygen Delivery Method Mechanical Ventilation Oxygen Flow Rate 50 Quality TeleICU VTE Deep Vein Thrombosis/Pulmonary Embolism Present on Admission: No Assessment & Plan Time Spent With Patient Critical Care time: I spent a total of [] minutes of critical care time on this patient's care today; this time is exclusive of procedural time.
--- NOTE | 2021-08-01 10:15 | PC.NURSE ---
Addendum entered by Jessica Urena R.N. 08/01/21 12:33: 1235: Air transport arrived. Pt transported with restraints in place, no evidence of injury noted. Report given and all drips verified with flight crew. Addendum entered by Jessica Urena R.N. 08/01/21 12:14: 1200: Pt transferring to outside facility for higher level of care. Report called to [facility] [employer], at [facility] in [place]. updated, questions answered. Awaiting airlift transport. Addendum entered by Jessica Urena R.N. 08/01/21 10:34: 1030: Schmitt catheter exchanged, temperature sensing catheter now in place and showing T=101.5. Order for acetaminophen suppository received. Original Note: 1015: Pt with persistent hypotension and high respiratory rate. Phenylephrine uptitrated, order for vasopressin received and initiated per protocol. Increased fentanyl and propofol drips to provide appropriate RASS. See MAR for rates. Vent settings adjusted per teleintensivist Dr Chavez. at bedside and updated. Continuing to monitor closely.
[2021-08-01] MEDS: MEROPENEM 500 MG in SODIUM CHLORIDE 0.9% 100 ML 200 ML IV (10:50)
--- NOTE | 2021-08-01 11:20 | PM.DS.1 ---
History of Present Illness History of Present Illness Chief complaint: low bp; shakes; slight fever Narrative: 66-year-old male former smoker with history of mechanical heart valve, on warfarin, paroxysmal atrial fibrillation, abdominal aortic aneurysm repair, urinary retention present with his for chief complaint of fever as high as 105, shaking chills, generalized weakness and poor appetite for the better part of 1 week.?He was scheduled to have a cystoscopy yesterday in [place] which was canceled due to patient not feeling well. Apparently urine then did not show signs of infection. Patient has history of urinary retention and had a short-term catheter back in April of this year. He has noticed blood in the urine. He denies respiratory symptoms such as cough or shortness of breath, denies abdominal pain, nausea or vomiting or blood per rectum. ER evaluation notable for fever, hypotension with BP 89 systolic, tachycardia with heart rate 113 in ill appearing patient. His WBC was [address]209 and he was in acute renal failure with BUN 48 and creatinine 2.46. He does not have history of renal failure. His lactate was also elevated at 3.3. His troponin was elevated at 0.211. EKG showed atrial fibrillation without acute ST or T-wave abnormality. Chest x-ray without infiltrate. Discharge Providers Provider Date of admission: 07/30/21 11:07 Discharge Date: 08/01/21 Primary care physician: Yasmani Mancilla MD Consults: 08/01/21 03:19 Consult to Dietitian, Adult Routine Comment: Reason For Exam: Patient on Ventilator and NPO 08/01/21 04:42 Consult After Hours PICC Line RN Routine Comment: 08/01/21 08:19 Consult After Hours PICC Line RN Routine Comment: Discharge provider: Edward Mayorga MD Summary Hospital Course Discharge Diagnosis: 1. Septic shock secondary to E coli bacteremia from urinary source 2. Acute hypoxic respiratory failure 3. Acute kidney injury 4. Troponin leak 5. Atrial fibrillation with RVR 6. Mechanical heart valve 7. Coagulopathy secondary to warfarin 8. Type 2 diabetes 9. BPH with acute urinary retention 10. Acute pulmonary edema secondary to fluid resuscitation Renal ultrasound: No hydronephrosis ECHO: Report pending Hospital Course: 66-year-old male former smoker with history of mechanical heart valve, on warfarin, paroxysmal atrial fibrillation, abdominal aortic aneurysm repair, urinary retention?presented with fever and rigors and admitted for severe sepsis due to urinary source. Patient was transferred to the ICU yesterday due to acute respiratory distress and severe hypoxia from fluid overload.? Chest x-ray showed pulmonary edema.? He was effectively diuresed and seemed to be doing much better as of yesterday evening prior to end of shift with improvement in O2 sats, elevated BP and tachycardia as well as clinically looking much better.? However later in the evening he acutely decompensated with drop in O2 sat in the 60s and ended up intubated. This morning patient is intubated and over breathing the vent.? He is more hypotensive in spite of Tito-Synephrine drip.? He did put out about 3.5 L after IV Lasix yesterday but no urine output in Schmitt catheter since this morning. Schmitt catheter placement confirmed with bladder scan. After 1 L LR bolus BP was dropping into 70 systolic and vasopressor added per tele minister helper recommendations.? WBC has increased today as well. He is also on amiodarone drip for AFib rate control since last night. Patient is being transferred to [facility] as would benefit from being at tertiary care hospital where there is higher level of ICU care. 1. Septic shock with E coli bacteremia from urinary source -presents with fever, hypotension and tachycardia, elevated lactate and FREDDY -blood and urine cultures from admission positive for E coli sensitive to current antibiotics -received initial 30 ml per kg IV volume resuscitation in ED -current antibiotics:? Meropenem 500 mg IV q.6 hours, Levaquin 750 mg IV Q 24 hours -continue pressor support to maintain map 65-70, -per discussion with accepting minister helper at [place] we are starting norepinephrine drip and tapering off Tito-Synephrine -continue vasopressin 0.04 units per minute -echo, help assess volume status, rule out cardiogenic shock -WBC up from yesterday but decrease in bands and no fever overnight -PICC line ordered but central line may need to be done at [place] 2. Acute hypoxic respiratory failure secondary to sepsis complications and volume overload -intubated evening of 07/31 -continue ventilator management -discussed with tele minister helper 3. Acute kidney injury -secondary to sepsis -no hydronephrosis on renal ultrasound -treat underlying etiology -urine output being monitored with Schmitt catheter 4. Troponin leak -secondary to renal injury and sepsis -patient without chest discomfort or EKG changes -recheck troponin -telemetry -echo 5. Mechanical heart valve, atrial fibrillation, warfarin coagulopathy -INR 5.9 on admit home dose of warfarin is 10 mg q.d. except 5 mg on -hold warfarin due to elevated INR -vitamin K 5 mg IV given on 08/01 due to INR > 10 -check daily INR and monitor for blood in ETT and catheter -also on amiodarone drip since last night for AFib rate control 6. Type 2 diabetes -holding metformin -low-dose sliding scale, CBG goal 140-180 7. BPH with acute urinary retention -patient with greater than 500 cc postvoid residual, Schmitt placed on 07/31 Exam Vital Signs (past 8 hours): - 08/01/21 03:28 08/01/21 03:30 08/01/21 03:44 Temperature Pulse Rate 113 H 118 H 99 H Respiratory Rate 67 H 65 H 56 H Blood Pressure 153/69 H 126/61 Pulse Oximetry 98 90 L 90 L 08/01/21 03:58 08/01/21 04:00 08/01/21 04:06 Temperature Pulse Rate 108 H 110 H 95 H Respiratory Rate 48 H 32 H 32 H Blood Pressure 157/74 H 110/54 L Pulse Oximetry 94 97 95 08/01/21 04:14 08/01/21 04:30 08/01/21 05:00 Temperature 97.3 F L Pulse Rate 114 H 125 H 121 H Respiratory Rate 59 H 45 H 40 H Blood Pressure 150/70 H 143/65 H Pulse Oximetry 93 91 93 08/01/21 05:11 08/01/21 05:30 08/01/21 06:00 Temperature Pulse Rate 123 H 122 H 122 H Respiratory Rate 29 H 31 H 30 H Blood Pressure 143/68 H Pulse Oximetry 92 93 95 08/01/21 06:01 08/01/21 06:02 08/01/21 06:07 Temperature Pulse Rate 121 H 122 H 120 H Respiratory Rate 29 H 29 H 30 H Blood Pressure 88/51 L 83/47 L 91/55 L Pulse Oximetry 95 95 95 08/01/21 06:15 08/01/21 06:17 08/01/21 07:00 Temperature 97.6 F Pulse Rate 121 H 123 H Respiratory Rate 31 H 29 H Blood Pressure 88/52 L 98/49 L Pulse Oximetry 95 95 08/01/21 07:11 Temperature Pulse Rate Respiratory Rate Blood Pressure Pulse Oximetry 94 Fraction of Inspired Oxygen 35 Oxygen Delivery Method Mechanical Ventilation Oxygen Flow Rate 50 Objective Labs Result Diagrams: 08/01/21 04:25 08/01/21 04:25 Labs: Laboratory Results - last 24 hr 07/31/21 07/31/21 07/31/21 12:52 20:40 20:40 WBC 15.9 H RBC 3.83 L Hgb 10.6 L Hct 31.4 L MCV 82.1 MCH 27.7 MCHC 33.8 RDW 14.6 Plt Count 181 Neut % (Auto) Not Reportable Lymph % (Auto) Not Reportable [place] % (Auto) Not Reportable Eos % (Auto) Not Reportable Baso % (Auto) Not Reportable Lymph # (Auto) Not Reportable [place] # (Auto) Not Reportable Baso # (Auto) Not Reportable Total Counted 100 Seg Neutrophils % 89.0 H D Band Neutrophils % 7.0 Lymphocytes % (Manual) 2.0 L Monocytes % (Manual) 2.0 Neutrophils # (Manual) 72248 H Toxic Vacuolation Present H RBC Morphology See below PT INR ABG pH 7.53 H ABG pCO2 22.0 L* ABG pO2 53 L ABG HCO3 18 L ABG Total CO2 19 L ABG O2 Saturation 92 L ABG Base Excess -4.0 L FiO2 Sodium 132 L Potassium 4.0 Chloride 101 Carbon Dioxide 21 L BUN 36 H Creatinine 1.30 H Estimated GFR 60 BUN/Creatinine Ratio 27.7 H Glucose 222 H Calcium 7.6 L Phosphorus 3.0 Magnesium 1.9 Total Bilirubin AST ALT Alkaline Phosphatase Total Protein Albumin Globulin Albumin/Globulin Ratio 08/01/21 08/01/21 08/01/21 04:25 04:25 04:25 WBC 20.0 H RBC 4.18 L Hgb 11.6 L Hct 34.2 L MCV 82.0 MCH 27.7 MCHC 33.8 RDW 14.5 Plt Count 206 Neut % (Auto) Not Reportable Lymph % (Auto) Not Reportable [place] % (Auto) Not Reportable Eos % (Auto) Not Reportable Baso % (Auto) Not Reportable Lymph # (Auto) Not Reportable [place] # (Auto) Not Reportable Baso # (Auto) Not Reportable Total Counted 100 Seg Neutrophils % 88.0 H Band Neutrophils % 6.0 Lymphocytes % (Manual) 4.0 L Monocytes % (Manual) 2.0 Neutrophils # (Manual) 75539 H Toxic Vacuolation RBC Morphology Normal morphology PT 110.6 H D INR Not Reportable ABG pH ABG pCO2 ABG pO2 ABG HCO3 ABG Total CO2 ABG O2 Saturation ABG Base Excess FiO2 Sodium Cancelled Potassium Cancelled Chloride Cancelled Carbon Dioxide Cancelled BUN Cancelled Creatinine Cancelled Estimated GFR Cancelled BUN/Creatinine Ratio Cancelled Glucose Cancelled Calcium Cancelled Phosphorus Magnesium Total Bilirubin AST ALT Alkaline Phosphatase Total Protein Albumin Globulin Albumin/Globulin Ratio 08/01/21 08/01/21 04:25 04:30 WBC RBC Hgb Hct MCV MCH MCHC RDW Plt Count Neut % (Auto) Lymph % (Auto) [place] % (Auto) Eos % (Auto) Baso % (Auto) Lymph # (Auto) [place] # (Auto) Baso # (Auto) Total Counted Seg Neutrophils % Band Neutrophils % Lymphocytes % (Manual) Monocytes % (Manual) Neutrophils # (Manual) Toxic Vacuolation RBC Morphology PT INR ABG pH 7.41 ABG pCO2 35.3 ABG pO2 57 L ABG HCO3 22 ABG Total CO2 23 ABG O2 Saturation 89 L ABG Base Excess -3.0 L FiO2 55 Sodium 129 L Potassium 3.9 Chloride 100 Carbon Dioxide 23 BUN 37 H Creatinine 1.28 H Estimated GFR > 60 BUN/Creatinine Ratio 28.9 H Glucose 274 H Calcium 7.8 L Phosphorus Magnesium Total Bilirubin 0.9 AST 59 ALT 28 Alkaline Phosphatase 120 Total Protein 6.3 Albumin 3.1 L Globulin 3.2 Albumin/Globulin Ratio 1.0 [facility] Medical History (Updated 07/30/21 @ 11:29 by Benedict Hernandez DO) Chronic anticoagulation Enlarged prostate Heart murmur (~2012) JOSELYN on CPAP Pancreatitis due to biliary obstruction (~2012) Paroxysmal atrial fibrillation Pre-diabetes Urinary incontinence Surgical History H/O prostate biopsy (~12/2016) History of AAA (abdominal aortic aneurysm) repair History of aortic valve replacement with metallic valve (11/19/12) History of lumbar surgery (~1989) Hx laparoscopic cholecystectomy (~06/2013) Family History Mother Hypertension Sister Gallstones Diabetes mellitus Social History marital status: household members: spouse occupational status: previously employed Smoking Status: Former smoker alcohol intake: current substance use type: does not use Discharge Plan Discharge Plan Patient Disposition: [facility] Other facility: [facility] Discharge Health Status Multidrug resistant organism: No MDRO Diet/Activity/Treatments Diet: Nothing by Mouth Discharge Data Primary Care Provider: Yasmani Mancilla VTE Deep Vein Thrombosis/Pulmonary Embolism Present on Admission: No
[2021-08-01] MEDS: PHENYLEPHRINE 40,000 MCG in DEXTROSE 5% IN WATER 250 ML 41.25 ML IV (11:25)
[2021-08-01] MEDS: propofoL 1,000 MG/100 ML VIAL 31.32 MG IV (11:32)
--- NOTE | 2021-08-01 11:35 | RT ---
VT ADJUSTED BY RN PER DR. YORK AT APPROX. 10:30 AM.
[2021-08-01] MEDS: levoFLOXacin 750 MG/150 ML PIGGYBACK 100 MG IV (11:39)
[2021-08-01 11:43] LABS: Fractionated Inspired Oxygen 40; HCO3 ABG 22 mmol/L (22-26); Oxygen Saturation ABG 90 % (95-100); PCO2 ABG 37.4 mmHg (35-45); PO2 ABG 59 mmHg (80-100); TCO2 ABG 23 mmol/L (21-31); pH ABG 7.38 (7.35-7.45)
[2021-08-01 11:53] LABS: Troponin I 0.207 ng/mL (0.01-0.034)
--- NOTE | 2021-08-01 12:53 | CM.DPC ---
DCP Cont: It is noted that patient is currently intubated, secondary to respiratory failure. Spouse has been at bedside, and on the phone with family membes. According to hospitalist, they are working on transferring patient to higher level of care due to his status. P: It is noted that [place] in [place], has accepted patient, and he is to be airlifted there. 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 Magdalena Best RN/Featherer
== END 2021-08-01 13:15 | disposition short-term general hospital (02) | DRG 871 ==
LOC: ED 10:49 → AC 11:08 → ICU 08-01 11:40 → AC 08-02 09:49
PROVIDERS: Internal Medicine; Internal Medicine Critical Care Medicine; Nurse Practitioner Family; Admitting Provider Internal Medicine; Emergency Provider Emergency Medicine; Family Provider Family Medicine; PCP Internal Medicine; Referring Provider Emergency Medicine; Visit Provider Internal Medicine
DX: A41.51 Sepsis due to Escherichia coli [E. coli] (principal); R65.21 Severe sepsis with septic shock; J96.01 Acute respiratory failure with hypoxia; J81.0 Acute pulmonary edema; N17.9 Acute kidney failure, unspecified; N41.0 Acute prostatitis; N39.0 Urinary tract infection, site not specified; I95.9 Hypotension, unspecified; R79.89 Other specified abnormal findings of blood chemistry; N40.1 Benign prostatic hyperplasia with lower urinary tract symptoms; R33.8 Other retention of urine; E87.70 Fluid overload, unspecified; I48.91 Unspecified atrial fibrillation; E11.9 Type 2 diabetes mellitus without complications; G47.33 Obstructive sleep apnea (adult) (pediatric); Z95.2 Presence of prosthetic heart valve; Z79.01 Long term (current) use of anticoagulants; Z87.891 Personal history of nicotine dependence; Z79.84 Long term (current) use of oral hypoglycemic drugs
CPT/HCPCS: 36415; 36600; 71045; 76770; 80048; 80053; 81001; 82550; 82553; 82570; 82805; 82962; 83605; 83735; 84100; 84145; 84300; 84484; 85007; 85025; 85610; 87040; 87070; 87077; 87086; 87150; 87186; 87205; 87635; 93005; 93010; 93306; 94002; 94760; 94799; 96361; 96365; 99284; 99285; C9803; C9113; J0282; J0330; J0692; J1630; J1720; J1940; J1956; J2060; J2185; J2270; J2704; J3010; J3430